=== PATIENT | female | born 1960 | race Caucasian/White ===

== ENCOUNTER 2017-12-01 06:57 | Day surgery (SDC) | payer MEDICAID, SELFPAY ==
[2017-11-29 16:08] LABS: Hematocrit 40.4 % (37-47); Hemoglobin 12.8 g/dl (12.0-15.0); Mean Corp Hgb Conc 31.7 g/gl (32-36); Mean Corpuscular Hgb 27.9 pg (27.0-32.0); Mean Corpuscular Volume 88.2 fL (81-99); Mean Platelet Vol. 10.6 fl (6.2-12.0); Platelet Count 313 K/mm3 (150-450); RBC Distribution Width CV 13.4 % (11.6-14.6); RBC Distribution Width SD 42.4 fl (35.1-43.9); Red Blood Count 4.58 M/mm3 (4.2-5.4); White Blood Count 8.1 K/mm3 (4.4-11.0)
[2017-11-29 16:16] LABS: Scan Indicated on CBC? Y/N NO
[2017-12-01] VITALS (8 sets, daily range): BP systolic 100–139; BP diastolic 58–86; PULSE 88–108; RESP 16; TEMP 35.8–36; O2SAT 92–100; BMI 36.8
--- NOTE | 2017-12-01 08:45 | OV_PTH ---
PATIENT: SHANNAN CABRAL LOC: [facility] U#:[id number] AGE/SX: 57/F ROOM: RE12/01/[address]: Dr. Jen Wiggins MD : 1960 BED: DIS: 12/01/2017 SPEC #: [id number] RECD: 12/01/17 11:36 STATUS: FERNIE LAILA #: [id number] SYED: 12/01/17 08:[address]: Jen Wiggins DEPT: SURGICAL PATHOLOGY RECD BY: Amari Fierro ENTERED: 12/01/17 13:21 SP TYPE: OVARY OTHR DR: Dr. Joan Leigh MD Tissues: Ovary, NOS Procedures: Surgery Specimen Level IV HEADER OPERATION: Laparoscopic BSO PRE-OP DIAGNOSIS: History breast CA TISSUE SUBMITTED: Bilateral tubes and ovaries MICROSCOPIC DIAGNOSIS Right and left fallopian tubes and ovaries, bilateral salpingo-oophorectomies: Right and left ovaries with corpora albicantia and luteal cyst changes. Right and left fallopian tubes ? no pathologic change. AM:margie 12/02/17 MICROSCOPIC DESCRIPTION Slides are reviewed. GROSS DESCRIPTION Received in fixative is one container labeled with the patient's name and designated bilateral fallopian tubes and ovaries. The specimen consists of bilateral fallopian tubes and ovaries. The ovaries and fallopian tubes are not identified as right or left. One of the fallopian tubes measures 4 cm in length and 0.5 cm in diameter. The fimbrial end is present. No tubo-ovarian adhesions are identified. Sections of the fallopian tube reveal unremarkable cut surfaces. The adjacent ovary measures 2 x 1.5 x 1 cm. The other fallopian tube measures 4.5 cm in length and 0.4 cm in diameter. The fimbrial end is identified. No tubo-ovarian adhesions are noted. The adjacent ovary measures 2 x 1.5 x 1.2 cm. Sections reveal unremarkable cut surfaces. Aquatic Laborer sections are submitted as follows: 1 ? one fallopian tube and adjacent ovary, 2 ? rest of the adjacent ovary, 3 ? second fallopian tube and adjacent ovary, 2 ? rest of the ovary. Both ovaries are submitted in entirety. / SJ:margie 12/01/17 TC:5 CPT: 52557 x2
[2017-12-01] MEDS: Bupivacaine Mpf 0.5% 30 ML VIAL (09:05)
--- NOTE | 2017-12-01 09:26 | PCM.DC.TUB ---
Discharge Diet: No Restrictions - Increase fluid intake for the next 48 hours. Discharge Activity: Return to Normal Activity, May Drive - when you are no longer taking pain/narcotic meds., May Shower, May Take a Tub Bath - in 7 days May shower in (days): 1 May resume sexual activity in: 2 weeks Lifting Restrictions: 15 lbs x 1 week Additional Activity Instructions:: Ambulate often the next week after surgery. Your skin incisions have skin glue, they can get wet Call your doctor if your incision/area has: Continuous Slow Oozing, Sudden Increased Bleeding, Increased Pain/ Swelling, Increased Redness, Foul Smelling Discharge Call your doctor if you observe: Fever of 101 or Higher Cleanse incision/area with: Soap & Water Allergies/Adverse Reactions: Allergies lisinopril Adverse Reaction (Verified 11/28/17 08:15) COUGH Medications to take at Discharge RX: BuPROPion [Wellbutrin] 200 mg PO DAILY 12/10/14 RX: Fluoxetine [Prozac] 80 mg PO DAILY 12/10/14 RX: Amitriptyline HCl [Elavil] 200 mg PO DAILY 06/08/17 RX: Ferrous Sulfate [Iron] 325 mg PO DAILY 06/08/17 RX: Omeprazole [Prilosec] 20 mg PO DAILY 06/08/17 RX: Amlodipine Besylate [Norvasc] 5 mg PO DAILY 10/25/17 RX: Losartan Potassium [Cozaar] 100 mg PO DAILY 10/25/17 RX: Meclizine HCl [Antivert] 25 mg PO TID PRN PRN 10/25/17 RX: Hydrochlorothiazide [Hctz] 25 mg PO DAILY 10/27/17 RX: ALPRAZolam [Xanax] 0.5 mg PO TID PRN 11/28/17 Ibuprofen [Motrin] 600 mg PO Q6H PRN #60 tab 12/01/17 Oxycodone HCl/Acetaminophen [Percocet 5/325] 1 - 2 tablet PO Q6H PRN PRN 7 Days #20 tablet 12/01/17 RX: Ondansetron [Zofran] 4 mg IM X1 PRN vial 12/01/17 The following prescriptions were given: Oxycodone HCl/Acetaminophen [Percocet 5/325] 1 - 2 tablet PO Q6H PRN PRN 7 Days #20 tablet PRN Reason: Pain Ibuprofen [Motrin] 600 mg PO Q6H PRN #60 tab PRN Reason: Pain Primary Care Physician: Joan Leigh MD [Primary Care Provider] - Please Follow Up With: Jen Wiggins MD - [phone] When: as scheduled or as needed 2-4 weeks
--- NOTE | 2017-12-01 09:28 | PCM.OPRPT ---
Report of Operation Date of Procedure: 12/01/17 Pre-Operative Diagnosis: estrogen receptor positive breast cancer Post-Operative Diagnosis: same Surgery/Procedure Performed:: Laprascopic BSO claims adjuster supervisor: Isidra Lobo claims adjuster supervisor: Rohan perez Type of Anesthesia:: General Anesthesiologist: John Bishop Special Medications: 0.25% marcaine locally Specimen's removed: bilateral tubes and ovaries Drains: none Estimated Blood Loss (mL): 10 cc Fluids Replaced: 600 cc LR Description of Procedure: The patient was taken to the operating room where she was prepped and draped in the dorsolithotomy position. A weighted speculum was placed in the vagina and the anterior lip of the cervix was grasped with a tenaculum. The Laura uterine manipulator was placed and the remainder of the instruments were removed from the vagina. Attention was turned to the abdomen. All port sites were infiltrated with 0.5% Marcaine before skin incisions were made. A 5 mm intraumbilical incision was made. The anterior abdominal wall was tented up with 2 towel clamps while a 5 mm blade less trocar and sleeve were directly inserted. Intraperitoneal placement was confirmed with the laparoscope. The pneumoperitoneum was created and the underlying abdominal contents were intact. The patient was placed in Trendelenburg. 5mm right and left lower quadrant ports were placed under direct visualization lateral to the inferior epigastric vessels. The bowel was swept away and the above findings were noted. The right infundibulopelvic ligament was clamped, sealed and transected with the LigaSure device. The antimesenteric portions of the tube were clamped, sealed and transected. The utero-ovarian ligaments were clamped sealed and transected with the LigaSure device . The same procedure was performed on the contralateral side. The specimens were placed in an bag and removed through the umbilical incision after it was stretched with a Nelda clamp. The Endo Catch bag was placed through this incision. The pedicles were again examined and found to be hemostatic. The umbilical port fascia was closed with an 0 Vicryl vrnchn-nb-wjyon suture. The lateral ports were removed under direct visualization and no active bleeding was noted. The pneumoperitoneum was released. The skin incisions were closed with Monocryl suture in a subcuticular fashion and skin glue Dr. Corona. The vaginal instruments were removed and the vaginal sweep was completed by me. The procedure was performed by me with assistance other than as dictated above. All sponge and needle counts were correct and the patient was taken to the recovery room in stable condition. Grafts/Implants Used: none - Complications none - Admit VTE Documentation VTE Present on Admission: No VTE Mechan Device Prophylaxis: SCD's VTE Pharm Prophylaxis ordered?: No
--- NOTE | 2017-12-01 09:34 | OP.PCM_ITS ---
Report of Operation Date of Procedure: 12/01/17 Pre-Operative Diagnosis: estrogen receptor positive breast cancer Post-Operative Diagnosis: same Surgery/Procedure Performed:: Laprascopic BSO president ergonomic consulting: Isidra Lobo president ergonomic consulting: Rohan perez Type of Anesthesia:: General Anesthesiologist: John Bsihop Special Medications: 0.25% marcaine locally Specimen's removed: bilateral tubes and ovaries Drains: none Estimated Blood Loss (mL): 10 cc Fluids Replaced: 600 cc LR Description of Procedure: The patient was taken to the operating room where she was prepped and draped in the dorsolithotomy position. A weighted speculum was placed in the vagina and the anterior lip of the cervix was grasped with a tenaculum. The Laura uterine manipulator was placed and the remainder of the instruments were removed from the vagina. Attention was turned to the abdomen. All port sites were infiltrated with 0.5% Marcaine before skin incisions were made. A 5 mm intraumbilical incision was made. The anterior abdominal wall was tented up with 2 towel clamps while a 5 mm blade less trocar and sleeve were directly inserted. Intraperitoneal placement was confirmed with the laparoscope. The pneumoperitoneum was created and the underlying abdominal contents were intact. The patient was placed in Trendelenburg. 5mm right and left lower quadrant ports were placed under direct visualization lateral to the inferior epigastric vessels. The bowel was swept away and the above findings were noted. The right infundibulopelvic ligament was clamped, sealed and transected with the LigaSure device. The antimesenteric portions of the tube were clamped, sealed and transected. The utero-ovarian ligaments were clamped sealed and transected with the LigaSure device . The same procedure was performed on the contralateral side. The specimens were placed in an bag and removed through the umbilical incision after it was stretched with a Nelda clamp. The Endo Catch bag was placed through this incision. The pedicles were again examined and found to be hemostatic. The umbilical port fascia was closed with an 0 Vicryl xywkdx-qh-hnjdp suture. The lateral ports were removed under direct visualization and no active bleeding was noted. The pneumoperitoneum was released. The skin incisions were closed with Monocryl suture in a subcuticular fashion and skin glue Dr. Corona. The vaginal instruments were removed and the vaginal sweep was completed by me. The procedure was performed by me with assistance other than as dictated above. All sponge and needle counts were correct and the patient was taken to the recovery room in stable condition. Grafts/Implants Used: none - Complications none - Admit VTE Documentation VTE Present on Admission: No VTE Mechan Device Prophylaxis: SCD's VTE Pharm Prophylaxis ordered?: No
[2017-12-01] MEDS: oxyCODONE 5 MG Tablet 10 MG PO (12:10)
== END 2017-12-01 13:18 | disposition home or self-care (01) ==
LOC: SDC 06:57 → AC 06:58
PROVIDERS: Family Provider Internal Medicine; PCP Internal Medicine; Visit Provider Obstetrics & Gynecology
PROC: (CPT 58661; principal; 2017-12-01 08:30)
DX: N83.292 Other ovarian cyst, left side (principal); N83.291 Other ovarian cyst, right side; N83.12 Corpus luteum cyst of left ovary; N83.11 Corpus luteum cyst of right ovary; C50.912 Malignant neoplasm of unspecified site of left female breast; Z17.0 Estrogen receptor positive status [ER+]; J44.9 Chronic obstructive pulmonary disease, unspecified; F32.9 Major depressive disorder, single episode, unspecified; K21.9 Gastro-esophageal reflux disease without esophagitis; I10 Essential (primary) hypertension; D50.9 Iron deficiency anemia, unspecified; G47.30 Sleep apnea, unspecified; F41.9 Anxiety disorder, unspecified; Z87.891 Personal history of nicotine dependence; Z79.51 Long term (current) use of inhaled steroids; Z79.891 Long term (current) use of opiate analgesic; Z79.899 Other long term (current) drug therapy
CPT/HCPCS: 00840; 58661; 36415; 85027; 88305; J7120; A4216; J2405

== ENCOUNTER → 2017-12-05 07:13 | Outpatient (CLI) | payer MEDICAID, SELFPAY ==
[2017-12-01 07:30] VITALS: BMI 36.8
[2017-12-01 10:48] VITALS: BP 100/60
--- NOTE | 2017-12-05 | IMM_PTH ---
PATIENT: SHANNAN CABRAL LOC: [facility] U#:[id number] AGE/SX: 64/F ROOM: RE12/05/[address]: Dr. Leidy Walker MD : 1960 BED: DIS: SPEC #: [id number] RECD: 12/06/17 11:10 STATUS: FERNIE RENeftali #: [id number] SYED: 12/05/17 00:[address]: Leidy Walker DEPT: IMMUNOHISTOCHEMISTRY RECD BY: Felicia Adams ENTERED: 12/06/17 11:11 SP TYPE: IMMUNO OTHR DR: Dr. Joan Leigh MD Tissues: Right breast, NOS Procedures: CALPONIN-1 (add) CK8 (add) E-CAD (add) HER2 DAMEON (add) KI-67 (add) P53 (add) FL (add) P40 (add) ER (initial) PHYSICIAN & INSTITUTION [place] [id number] SPECIMEN INFORMATION: Tissue Source: Right breast Clinical Info: Right breast 12 o?clock microcalcifications Specimen Number: [id number] #1 CPT code: 44434, 66290 x5, 18795 x3 METHODOLOGY: Deparaffinized sections of prefer/formalin-fixed tissue or PAP/DQ stained slides are incubated with monoclonal/polyclonal antibodies/oligonucleotide probes. Localization is made via biotin free immunoperoxidase method. Appropriate controls are performed and reacted as expected. Results on target cell population are indicated in the following table: RESULTS: ANTIBODY / CLONE RESULT Block 1 P53 (DO-7) positive, 20% Ki-67 (30-9) positive, low CK8 (04uxdkF20) positive Calponin-1 (UK386R) positive P40 (BC28) positive E-Cad (ECH-6) positive MORPHOMETRIC ANALYSIS ER (clone 6F11) positive, 2% dim FL (clone 16/1E2) negative, 0% Her-2Neu (clone CB11) positive, 3+ The prognostic test for HER2 is performed on formalin-fixed paraffin embedded tissue. A 3+ (positive) staining pattern is defined as intense, homogeneous, complete, circumferential membranous staining in >10% of contiguous tumor cells. A similar weak (2+) staining pattern is interpreted as equivocal. DIDIER follow-up testing is recommended for all equivocal cases. Positivity/negativity for ER/FL is reported if > or < 1% of the tumor cells are immuno- reactive, respectively. The ASCO/CAP criteria is used for scoring. Reference: Journal of Clinical Oncology, 2013; 31:8221-6313 & 2010; 16:3903-4481. Duration of fixation: 11 Hrs; Sample Adequate: Yes. These assays have not been validated on decalcified tissues. Results should be interpreted with caution given the likelihood of false negativity on decalcified specimens. These tests were developed and their performance characteristics determined by [facility]. They may not have been cleared or approved by the U.S. Food and Drug Administration. The FDA has determined that such clearance or approval is not necessary. 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 AM:margie 12/07/17 Case has been reviewed in consultation with Dr. Bowens who concurs with the above diagnosis. IDC:SJ
--- NOTE | 2017-12-05 08:25 | BRBX_PTH ---
PATIENT: SHANNAN CABRAL LOC: [facility] U#:[id number] AGE/SX: 64/F ROOM: RE12/05/[address]: Dr. Leidy Walker MD : 1960 BED: DIS: SPEC #: [id number] RECD: 12/05/17 14:45 STATUS: FERNIE RENeftali #: [id number] SYED: 12/05/17 08:[address]: Leidy Walker DEPT: SURGICAL PATHOLOGY RECD BY: Juarez Fuentes ENTERED: 12/05/17 14:46 SP TYPE: BREAST BX OTHR DR: Dr. Joan Leigh MD Tissues: Right breast, NOS Procedures: Surgery Specimen Level IV HEADER OPERATION: Right breast stereotactic biopsy PRE-OP DIAGNOSIS: Right breast 12 o?clock microcalcifications TISSUE SUBMITTED: Right beast tissue ISCHEMIC TIME: 3 minutes FIXATION TIME: 11 hours MICROSCOPIC DIAGNOSIS Right breast, stereotactic needle core biopsy: Focal atypical hyperplasia approaching ductal carcinoma insitu. Microcalcifications Fibrocystic change, intraductal hyperplasia without atypia, adenosis and focal secretory change. AM:margie 12/06/17 COMMENT ER/UT/Lwb5cxh studies are being performed on sections of tumor and the results from this study will be reported separately ([id number]). Case has been reviewed in consultation with Dr. Bowens who concurs with the above diagnosis. IDC:JAGDISH MICROSCOPIC DESCRIPTION Slides are reviewed. GROSS DESCRIPTION Received in fixative is one container labeled with the patient's name and designated right breast. The specimen consists of multiple elongated fragments of reyna-yellow fibroadipose tissue that in aggregate measure 7.5 x 3 x 0.3 cm. The entire specimen is submitted in three cassettes. / JAGDISH:margie 12/05/17 TC:0 CPT: 25938
--- NOTE | 2017-12-05 08:58 | PCM.OPRPT ---
Report of Operation Date of Procedure: 12/05/17 Pre-Operative Diagnosis: abnormal calcifications on right breast mammograms Post-Operative Diagnosis: same Surgery/Procedure Performed:: right stereotactic breast biopsy Description of Surgical Findings:: central calcifications, right breast 12:00 Specimen's removed: right breast tissue Estimated Blood Loss (mL): < 2 Description of Procedure: After informed consent was given, the patient was brought into the breast biopsy suite and then placed in the prone position on the stereotactic biopsy table. Appropriate time out protocol was followed. The patients right breast was then placed in the hole at the head of the table. A packaging line attendant compression mammogram was then obtained in the CC view. The suspicious radiological lesion was then identified. Stereo pictures of the lesion were then taken for XYZ coordinates. The Mammotome biopsy stylus was then positioned where it would be entering into the patients breast. The skin at this site was then cleansed with a surgical skin preparation. The skin and subcutaneous tissues at this site were then infiltrated with 1% xylocaine. A small skin incision was made with an 11 blade scalpel. The biopsy stylus was then positioned into the patients breast at the proper coordinates of depth. Using the Mammotome vacuum-assist device, several core samples of breast tissue were obtained. A specimen mammogram was the obtained and revealed that the suspicious lesion was within the specimen. A hemostatic marker clip was then placed into the biopsy cavity and a packaging line attendant film revealed that it was properly deployed. The patient was then placed in the supine position and pressure was applied to the breast until no active bleeding was noted. Steristrips were applied to reapproximate the skin. A unilateral mammogram in the CC and MLO view were then taken which revealed that the marker clip was in the same area as the previous suspicious lesion. The patient tolerated the procedure well and was discharged from the breast biopsy suite in good condition. Grafts/Implants Used: Mammotome clip Lot [id number] - Complications none noted - Admit VTE Documentation VTE Present on Admission: No - low risk procedure for PE/DVT
== END ==
PROVIDERS: Family Provider Internal Medicine; PCP Internal Medicine; Visit Provider Surgery
DX: D05.11 Intraductal carcinoma in situ of right breast (principal); N60.11 Diffuse cystic mastopathy of right breast; N60.91 Unspecified benign mammary dysplasia of right breast; N60.21 Fibroadenosis of right breast; C50.912 Malignant neoplasm of unspecified site of left female breast; J44.9 Chronic obstructive pulmonary disease, unspecified; I10 Essential (primary) hypertension; Z90.12 Acquired absence of left breast and nipple; Z87.891 Personal history of nicotine dependence; Z79.51 Long term (current) use of inhaled steroids; Z79.899 Other long term (current) drug therapy
CPT/HCPCS: 19081; 88305; 88341; 88342; J7050; A4648

== ENCOUNTER 2017-12-26 11:23 | Observation (INO) | payer MEDICAID, SELFPAY ==
[2017-12-01 07:30] VITALS: BMI 36.8
[2017-12-01 10:48] VITALS: BP 100/60
[2017-12-26] VITALS (10 sets, daily range): BP systolic 118–148; BP diastolic 64–76; PULSE 89–117; RESP 16–20; TEMP 36.3–37.6; O2SAT 92–98; BMI 37.4
--- NOTE | 2017-12-26 | IMM_PTH ---
PATIENT: SHANNAN CABRAL LOC: [facility] U#:[id number] AGE/SX: 57/F ROOM: MS316 RE12/26/[address]: Dr. Leidy Walker MD : 1960 BED: 1 DIS: 12/27/2017 SPEC #: [id number] RECD: 12/28/17 16:37 STATUS: FERNIE REQ #: [id number] SYED: 12/26/17 00:[address]: Leidy Walker DEPT: IMMUNOHISTOCHEMISTRY RECD BY: Felicia Adams ENTERED: 12/28/17 16:39 SP TYPE: IMMUNO OTHR DR: Dr. Joan Leigh MD Tissues: A - Axillary lymph node, NOS B - Right breast, NOS Procedures: CALPONIN-1 (add) CK7 (add) CK8 (add) E-CAD (add) Pankeratin (initial) Pankeratin (add) P40 (add) PHYSICIAN & INSTITUTION [place] [address] SPECIMEN INFORMATION: Tissue Source: A ? Right axillary sentinel lymph node, B ? Right breast with lymph node Clinical Info: Atypical ductal hyperplasia of right breast Specimen Number: [id number] A & B CPT code: 22767 x2, 03079 x10 METHODOLOGY: Deparaffinized sections of prefer/formalin-fixed tissue or PAP/DQ stained slides are incubated with monoclonal/polyclonal antibodies/oligonucleotide probes. Localization is made via biotin free immunoperoxidase method. Appropriate controls are performed and reacted as expected. Results on target cell population are indicated in the following table: RESULTS: ANTIBODY / CLONE RESULT Block A AE1-3 (AE1/AE3/PCK26) negative CK7 (OV-TL12/30) negative Block B1 AE1-3 (AE1/AE3/PCK26) negative CK7 (OV-TL12/30) negative Block B2 AE1-3 (AE1/AE3/PCK26) negative CK7 (OV-TL12/30) negative Block B3 AE1-3 (AE1/AE3/PCK26) negative CK7 (OV-TL12/30) negative Block B10 E-Cad (ECH-6) positive CK8 (49xhanY93) positive Block B16 P40 (BC28) positive Calponin-1 (IN669J) positive These tests were developed and their performance characteristics determined by [facility]. They may not have been cleared or approved by the U.S. Food and Drug Administration. The FDA has determined that such clearance or approval is not necessary. INTERPRETATION: A. Right axillary sentinel lymph node, biopsy: One lymph node, negative for metastatic carcinoma. B. Right breast with lymph node: Three out of three lymph nodes, negative for metastatic carcinoma. Intraductal hyperplasia with focal atypia. Extensive adenosis. SJ:margie 12/29/17
--- NOTE | 2017-12-26 | AXNB_PTH ---
PATIENT: SHANNAN CABRAL LOC: [facility] U#:[id number] AGE/SX: 57/F ROOM: AZ316 RE12/26/[address]: Dr. Leidy Walker MD : 1960 BED: 1 DIS: 12/27/2017 SPEC #: [id number] RECD: 12/26/17 11:05 STATUS: FERNIE REQ #: [id number] SYED: 12/26/17 00:[address]: Leidy Walker DEPT: SURGICAL PATHOLOGY RECD BY: Felicia Adams ENTERED: 12/26/17 12:34 SP TYPE: AX NODE BX OTHR DR: Dr. Joan Leigh MD Tissues: A - Axillary lymph node, NOS B - Right breast, NOS Procedures: Frozen Section (charge) Surgery Specimen Level V Surgery Specimen Level Frozen (no charge) HEADER OPERATION: Mastectomy, sentinel node biopsy with frozen section PRE-OP DIAGNOSIS: Atypical ductal hyperplasia of right breast TISSUE SUBMITTED: A ? Right axillary sentinel lymph node sent for FS at 1101, B ? Right breast with lymph node FIXATION TIME: 31 hours FROZEN SECTION DIAGNOSIS A. Right axillary sentinel lymph node, biopsy: One lymph node, negative for metastatic carcinoma. JAGDISH:margie 12/26/17 MICROSCOPIC DIAGNOSIS A. Right axillary sentinel lymph node, biopsy: One lymph node, negative for metastatic carcinoma. See comment. B. Right breast with lymph node tissue, radical mastectomy: Intraductal hyperplasia with focal atypia. Extensive adenosis with focal atypia. Fibrocystic changes. Frequent microcalcifications. Three out of three lymph nodes, negative for metastatic carcinoma. Changes consistent with previous biopsy site. Negative for malignancy. JAGDISH:margie 12/28/17 COMMENT A. The lymph node is negative for metastatic carcinoma on multiple H & E levels and immunohistochemical stains for cytokeratins ([id number]). B. Immunohistochemistry ([id number]) supports the above diagnosis.. Please make reference to previous specimen ([id number]) right breast, stereotactic needle core biopsy with diagnosis of focal atypical hyperplasia approaching ductal carcinoma in situ and ([id number]) left breast, mastectomy with diagnosis of invasive ductal carcinoma. MICROSCOPIC DESCRIPTION Slides are reviewed. GROSS DESCRIPTION A - Received fresh for frozen section diagnosis labeled with the patient's name is a specimen designated right axillary sentinel lymph node. The specimen consists of a piece of adipose tissue containing a nodule measuring 1 x 0.3 x 0.2 cm. The entire specimen is submitted for frozen section diagnosis in one cassette. / SJ:margie 12/26/17 B - Received in fixative is one container labeled with the patient's name and designated right breast with lymph node tissue, suture gray axilla. The specimen consists of a mastectomy specimen including breast tissue and axillary tail. The axillary tail is marked by a suture. The breast tissue measures 18 x 22 x 5 cm and the overlying skin ellipse measures 16 x 4.5 cm. The axillary tail measures 7 x 5 x 3 cm. A detached piece of fatty tissue with a nodule is identified. The nodule is consistent with lymph node and shows blue dye discoloration and the lymph node measures 1 cm in greatest dimension. The nipple measures 1 cm in greatest dimension. The resection margins are inked as follows: anterior surface ? yellow, close to the skin ellipse, superior margin ? blue, inferior margin ? green, medial margin ? red, lateral margin including axillary tail ? orange, posterior margin ? black. Serial sections reveal a hemorrhagic cavity filled with blood clot measuring 2.5 x 2.5 x 2 cm. The hemorrhagic cavity is 0.7 cm away from the closest anterior margin superior to the skin ellipse. No obvious mass lesion is identified. Sections of the rest of the specimen reveal reyna-yellow adipose cut surfaces mixed with reyna-white fibrous areas. Three additional lymph nodes are identified in the axillary tail measuring 0.5 and 1 cm in greatest dimension. The axillary tail tissue is fixed in lymph node-revealing solution. More dictation will be follow after overnight fixation. / SJ:margie 12/26/17 Further sectioning of axillary tail reveal fibrous area, possible lymph nodes.. Medical Assisting Program Director sections are submitted in 20 cassettes as follows: 1- 1 bisected lymph node, with blue dye discoloration, present as detached piece of tissue, 2 & 3 ? each containing one bisected lymph node, 4 ? possible one bisected lymph node, 5 - possible one bisected lymph node, 6 ? nipple, entirely submitted, 7 ? perpendicular superior, inferior and posterior margins, 8 ? perpendicular medial and lateral margins and skin, 9-15 ? biopsy cavity with surrounding tissue, senior patient account representative section adjacent to the biopsy cavity, 1720 ? senior patient account representative sections away from the biopsy cavity. / JAGDISH:margie 12/27/17 TC:5 CPT: 07548, 72535, 31705
[2017-12-26] MEDS: Cefazolin 2 GM in 0.9% Normal Saline 100 ML IV (09:49)
[2017-12-26] MEDS: Methylene Blue 1% 100 MG/10 ML VIAL (10:09)
--- NOTE | 2017-12-26 11:19 | PCM.IMDPSTOP ---
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
--- NOTE | 2017-12-26 11:22 | OP.PN_ITS ---
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
--- NOTE | 2017-12-26 11:22 | PCM.OPRPT ---
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 and history of left breast cancer Post-Operative Diagnosis: same Surgery/Procedure Performed:: right simple mastectomy, right axillary sentinel lymph node biopsy Description of Surgical Findings:: one sentinel lymph node found to be negative vba developer: Khalida Rai Type of Anesthesia:: General Anesthesiologist: Gudelia Matute Specimen's removed: right breast tissue, right axillary sentinel lymph node Drains: 2 10mm drains - one in axlla, one at mastectomy bed Estimated Blood Loss (mL): 20 ml Fluids Replaced: 500 ml RL Description of Procedure: After informed consent was given the patient was brought to the OR and placed in the supine position on the operating room table. Appropriate time out protocol was followed. She was then placed under general anesthesia. 5 cc of diluted 50:50 methylene blue dye was then injected into the periareolar area and around the biopsy cavity with a 25 g needle. Gentle massage was then done for a few minutes. The patient's right chest and neck area was then prepped with a sterile surgical skin preparation and appropriate sterile surgical drapes were placed. A skin incision was made to include the periareolar tissues. This was made to match the contralateral mastectomy site as close as possible. Also since the initial biopsy site was far superior to the mastectomy incision site, an additional excision of this skin eschar was done. The skin incision was made with a 10 blade scalpel and carried through to the subcutaneous tissues using electrocautery. Any hemorrhage was controlled with electrocautery. The medial and superior skin flap was created by the subcutaneous fat from the breast tissue using electrocautery. Any bleeding vessels were controlled with electrocautery. Larger vessels were ligated with vicryl suture. Dissection then continued to the level of the left lateral sternal border. The superior level of dissection was carried down to the clavipectoral fascia. This was carefully done to avoid injury to the right chest portacath that was in place. The inferior skin flap was developed in the same fashion and the breast tissue was to its inferior border from the subcutaneous fat. The entire breast tissue and the pectoralis fascia were then from the pectoralis muscles starting medially and continuing laterally. The dissection included the interpectoral ruby tissue. Once dissection was achieved to the lateral aspect of the breast, then the inferior portion of the lateral tissue was transected leaving the breast tissue connected only by the superior lateral tissue (tail of Romero) of the breast. Blunt dissection was then conducted into the axillary fossa to palpate out any axillary lymph nodes. Blue lymphatic channels were also followed to its lymphatic drainage area. One axillary lymph node was identified which was obviously blue in coloration. It was dissected from the surrounding tissues using sharp dissection and any vasculature was clamped with hemoclips. The lymph node was forwarded to pathology for which a frozen section revealed no evidence of metastatic disease. Hemostasis of the area of dissection was then achieved with electrocoagulation. The mastectomy bed and axillary cavity had Chay applied. A 10 mm drain was placed in the axilla and another was placed along the mastectomy bed and these drains were brought out through separate skin incisions and sutured to the skin using nylon suture. The superior and inferior skin flaps were then approximated together using interrupted vicryl suture along the dermis of the skin edges. The skin incision was then reapproximated with 4-0 monocryl in a running subcuticular fashion. Cavilon and steristrips were then placed to reinforce the skin closure and proper sterile dressings were applied. - Complications none noted - Admit VTE Documentation VTE Present on Admission: Yes VTE Mechan Device Prophylaxis: SCD's
[2017-12-26] MEDS: 0.9% NaCl Peripheral Flush Adult/Peds IV (15:08)
[2017-12-26] MEDS: Cefazolin 1 GM/50 ML BAG IV (18:21)
[2017-12-26] MEDS: HYDROcodone Bitartrate/Apap 5/325 Tablet PO (20:14)
[2017-12-26] MEDS: Lactated Ringers 1,000 ML 75 ML IV (20:16)
[2017-12-27] MEDS: Cefazolin 1 GM/50 ML BAG IV ×2 (02:01→10:37)
[2017-12-27] MEDS: 0.9% NaCl Peripheral Flush Adult/Peds IV ×3 (02:03→12:07)
[2017-12-27 02:04] VITALS: BP 130/69; PULSE 101; RESP 18; TEMP 37.3; O2SAT 94
--- NOTE | 2017-12-27 07:21 | PCM.DC.BS ---
Discharge Diet: No Restrictions Discharge Activity: Return to Normal Activity, May not drive while taking narcotic pain medications. Lifting Restrictions: no lifting with right arm greater than 5 pounds until further notice Call your doctor if your incision/area has: Continuous Slow Oozing, Foul Smelling Discharge Additional Dressing/Incision Instructions:: Leave dressing in place. Sponge bathe only. Empty GAYLE drains and reconstitute suction as per needed Allergies/Adverse Reactions: Allergies lisinopril Adverse Reaction (Verified 12/19/17 11:17) COUGH Medications to take at Discharge BuPROPion [Wellbutrin] 200 mg PO DAILY 12/10/14 Fluoxetine [Prozac] 80 mg PO DAILY 12/10/14 Amitriptyline HCl [Elavil] 200 mg PO QHS 06/08/17 Ferrous Sulfate [Iron] 325 mg PO DAILY 06/08/17 Omeprazole [Prilosec] 20 mg PO DAILY 06/08/17 Amlodipine Besylate [Norvasc] 5 mg PO DAILY 10/25/17 Losartan Potassium [Cozaar] 100 mg PO DAILY 10/25/17 Meclizine HCl [Antivert] 25 mg PO TID PRN PRN 10/25/17 Hydrochlorothiazide [Hctz] 25 mg PO DAILY 10/27/17 ALPRAZolam [Xanax] 0.5 mg PO TID PRN 11/28/17 Ibuprofen [Motrin] 800 mg PO Q6H PRN 12/19/17 Cephalexin [Keflex] 500 mg PO BID 10 Days #20 cap 12/27/17 Oxycodone [Oxyir] 5 mg PO Q6H PRN PRN 7 Days #14 tab 12/27/17 The following prescriptions were given: Oxycodone [Oxyir] 5 mg PO Q6H PRN PRN 7 Days #14 tab PRN Reason: Mod-Severe Pain (4-08/09) Cephalexin [Keflex] 500 mg PO BID 10 Days #20 cap Primary Care Physician: Joan Leigh MD [Primary Care Provider] - Please Follow Up With: Leidy Walker MD - call When: to be seen or Tuesday, please call for date and time, thank you
[2017-12-27 07:42] VITALS: O2SAT 96
[2017-12-27 08:04] VITALS: BP 150/80; PULSE 84; RESP 18; TEMP 36.9; O2SAT 99
[2017-12-27] MEDS: HYDROcodone Bitartrate/Apap 5/325 Tablet PO (08:27)
[2017-12-27 12:10] VITALS: BP 148/81; PULSE 84; RESP 18; TEMP 36.7; O2SAT 97
== END 2017-12-27 12:09 | disposition home or self-care (01) ==
LOC: SDC 12:05
PROVIDERS: Admitting Provider Surgery; Family Provider Internal Medicine; PCP Internal Medicine; Visit Provider Surgery
PROC: (CPT 19307; principal; 2017-12-26 09:45)
DX: N60.91 Unspecified benign mammary dysplasia of right breast (principal); Z85.3 Personal history of malignant neoplasm of breast; I10 Essential (primary) hypertension; J44.9 Chronic obstructive pulmonary disease, unspecified; F11.20 Opioid dependence, uncomplicated; Z79.899 Other long term (current) drug therapy; Z87.891 Personal history of nicotine dependence; E66.01 Morbid (severe) obesity due to excess calories; Z68.39 Body mass index [BMI] 39.0-39.9, adult; Z71.3 Dietary counseling and surveillance; F41.9 Anxiety disorder, unspecified; F32.9 Major depressive disorder, single episode, unspecified; N60.21 Fibroadenosis of right breast
CPT/HCPCS: 19303; 38525; 38900; 88305; 88307; 88309; 88331; 88341; 88342; 96361; 96365; 96366; 96375; 96376; 97802; 99218; J7120; A4216; G0378; G0379; J2405; J3490

== ENCOUNTER 2018-01-05 14:19 | Emergency (ER) | payer MEDICAID, SELFPAY ==
[2018-01-05 14:20] VITALS: BP 131/94; PULSE 115; RESP 16; TEMP 35.8; O2SAT 93; BMI 38.5
--- NOTE | 2018-01-05 14:58 | CT_ITS ---
STUDY: CT ABDOMEN AND PELVIS WITHOUT CONTRAST REASON FOR EXAM: Female, 57 years old. Constipation. Status post bilateral mastectomy. RADIATION DOSAGE (If Supplied By Facility): CTDIvol = ( 19.84 ) mGy, DLP = ( 996.18 ) mGycm TECHNIQUE: Transaxial images were obtained from the dome of the diaphragm to the symphysis pubis without oral contrast, and without intravenous contrast. Sagittal and coronal images were reconstructed. Individualized dose optimization techniques were used for this CT. COMPARISON: None. FINDINGS: Mild linear atelectatic versus chronic changes. Small pericardial effusion. Mild fatty liver. Normal gallbladder and extrahepatic biliary system. There are multiple benign calcified granulomata of the spleen. Normal pancreas. Normal bilateral adrenal glands. Normal right kidney. Normal left kidney. Food filled stomach. Normal small bowel. Stool filled right colon, transverse colon and left colon. Minimal diverticulosis without acute diverticulitis. Negative for a mechanical obstruction of the colon. The appendix is visualized and appears normal. There is diffuse atherosclerotic calcification of the abdominal aorta, without a demonstrated aneurysm. Normal inferior vena cava. Normal retroperitoneum. Normal urinary bladder. Negative for pelvic mass or free fluid of the pelvis. Normal abdominal wall. There are diffuse degenerative changes of the visualized lumbar spine. CT/Abdomen/Pelvis without Cont IMPRESSION: Negative for evidence of bowel obstruction, perforation or inflammatory bowel changes. Minimal diverticulosis without evidence of acute diverticulitis. A normal appendix is identified. Stool-filled proximal and left colon. Negative for mechanical obstruction. Calcified granuloma of the spleen. Mild fatty liver. Atherosclerosis. Mild degenerative changes of the lumbar spine. Electronically Signed: Meg Mclean MD at 16:03 EST , Service support ,
--- NOTE | 2018-01-05 15:03 | ED.VISSUMM ---
- ER Visit Summary Date of Service: 01/05/18 Chief Complaint: [] Constipation status post right mastectomy History of Present Illness: The patient is a 57 F [] cancer prior left mastectomy prior recent 2 months ago hysterectomy complete, there apparently was a need for right mastectomy related to concern for breast cancer, related to all of the above this was done the other day. Without difficulty, no complication she reports she has been on [place] and percocet and she is developed constipation she is able to eat she is passing some gas per rectum but no stool for the last few days despite using enemas etc. She has no other complaints she has no history of bowel obstruction or other GI elements her only abdominal surgery was her hysterectomy Physical Examination: [] She has an obviously distended abdomen she is in no distress her vital signs are normal head neck unremarkable the right mastectomy incisions intact without drainage or bleeding or signs of infection, the drain is draining serosanguineous fluid there is nontender the abdomen is distended but nontender, back upper lower extremities unremarkable rectal exam shows empty vault with no stool nontender Test Results: [] Emergency Department Course and Treatment: [] All of the above IV fluids screening labs the patient's CT shows nothing acute labs are generally unremarkable she is noted to have considerable fecal load in the colon, she was treated with soapsuds enema she feels better she wants to go home she had a large bowel movement she understands the need to stop using the narcotic medications, high-fiber food prune-juice MiraLAX and return for change in symptoms she is feeling much better and wants to go home Treatment Plan: [] Disposition: [] Stable home Impression: [] Constipation, status post right mastectomy This note was generated with [employer] dictation software. It may contain incorrect words, spelling, and punctuation that were not noted in review of the chart prior to signing ED Disposition - Plan for ED Patient: Chief Complaint: Constipation Referrals: Joan Leigh MD [Primary Care Provider] -
[2018-01-05] MEDS: 0.9% Normal Saline 1,000 ML 1000 ML IV (15:21)
[2018-01-05 15:32] LABS: Absolute Lymphocyte Count 1.66 X10^3/ul (0.83-4.51); Absolute Neutrophil Count 8.5 X10^3/uL (2.0-7.7); Basophil# 0.01 X10^3/uL; Basophil% 0.1 % (0-1); Eosinophil# 0.09 X10^3/uL; Eosinophils% 0.8 % (0-5); Hematocrit 32.7 % (37-47); Hemoglobin 10.1 g/dl (12.0-15.0); Lymphocyte # 1.66 X10^3/ul (4.0); Lymphocyte % 15.3 % (19-41); Mean Corp Hgb Conc 30.9 g/gl (32-36); Mean Corpuscular Hgb 26.6 pg (27.0-32.0); Mean Corpuscular Volume 86.3 fL (81-99); Mean Platelet Vol. 9.7 fl (6.2-12.0); Monocyte# 0.58 X10^3/uL; Monocyte% 5.4 % (0-10); Neutrophil # 8.46 X10^3/uL (2.7-7.7); Neutrophil % 78.1 % (47-70); Platelet Count 281 K/mm3 (150-450); RBC Distribution Width CV 14.1 % (11.6-14.6); Red Blood Count 3.79 M/mm3 (4.2-5.4); White Blood Count 10.8 K/mm3 (4.4-11.0)
[2018-01-05 15:33] LABS: POSITIVE COUNT NO; POSITIVE DIFFERENTIAL NO; POSITIVE MORPHOLOGY NO
[2018-01-05 15:40] LABS: AST(SGOT) 20 U/L (15-37); Alanine Aminotransfer ALT/SGPT 27 U/L (13-56); Albumin, Serum 3.3 g/dL (3.2-5.0); Alkaline Phosphatase 94 U/L (45-117); Anion Gap 9 (5-15); BUN 36 mg/dL (7-18); BUN/Creat Ratio 22.9 RATIO (10-20); Bilirubin, Direct 0.07 mg/dL (0.00-0.30); Calcium,Total 8.5 mg/dL (8.5-10.1); Chloride 98 mmol/L (98-107); Creatinine, Serum 1.57 mg/dL (0.55-1.02); EST Glomerular Filtration Rate 36 mL/min (>60); Est Glom Filt Rate - Afr Amer 44 mL/min (>60); Estimated Creatinine Clearance 31.27 ml/min; Globulin 3.4 g/dL (2.2-4.2); Glucose 99 mg/dL (74-106); Lipase 117 U/L (73-393); Potassium 3.9 mmol/L (3.5-5.1); Protein, Total 6.7 g/dL (6.4-8.2); Sodium Level 133 mmol/L (136-145)
[2018-01-05 16:41] VITALS: BP 125/59; PULSE 103; RESP 16; O2SAT 95
--- NOTE | 2018-01-05 17:42 | ED.DEP ---
ED Disposition - Plan for ED Patient: Chief Complaint: Constipation Instructions: ED Constipation Referrals: Joan Leigh MD [Primary Care Provider] -
[2018-01-05 18:18] VITALS: BP 128/64; PULSE 78; RESP 18
== END 2018-01-05 20:05 | disposition home or self-care (01) ==
PROVIDERS: Emergency Provider Emergency Medicine; Family Provider Internal Medicine; PCP Internal Medicine
DX: K59.00 Constipation, unspecified (principal); Z90.11 Acquired absence of right breast and nipple; Z79.891 Long term (current) use of opiate analgesic; Z79.899 Other long term (current) drug therapy
CPT/HCPCS: 36591; 74176; 80048; 80076; 83690; 85025; 96360; 96361; 99284; J7030; A4216

== ENCOUNTER 2018-01-31 14:52 | Emergency (ER) | payer MEDICAID, SELFPAY ==
[2018-01-31] VITALS (13 sets, daily range): BP systolic 134–162; BP diastolic 65–108; PULSE 78–105; RESP 16–23; TEMP 36.4–37.2; O2SAT 93–97; BMI 38.0
--- NOTE | 2018-01-31 15:11 | CT_ITS ---
STUDY: CT BRAIN WITHOUT CONTRAST REASON FOR EXAM: Female, 57 years old. Headache and vertigo x2 months RADIATION DOSAGE (If Supplied By Facility): CTDIvol = ( 44.99 ) mGy, DLP = ( 765.18 ) mGycm TECHNIQUE: Transaxial CT imaging of the brain was performed without administration of intravenous contrast material. Individualized dose optimization techniques were used for this CT. COMPARISON: None. FINDINGS: Normal soft tissue structures. Normal calvarium. Normal size ventricles and extra-axial spaces for the patient's age. Normal white matter tracts of the cerebral hemispheres. Normal basal ganglia and thalami. Normal brainstem. Normal cerebellum. There is no intracranial hemorrhage. There are no findings of an acute ischemic infarction. Normal visualized paranasal sinuses. Trace fluid in the right mastoid air cells. CT/Brain/Head without Contrast IMPRESSION: Normal unenhanced CT scan of the brain. Trace fluid in the right mastoid air cells. Electronically Signed: Ty Ferrell DO at 16:53 EDT Tel , Service support ,
--- NOTE | 2018-01-31 15:28 | ED.DCSUM_ITS ---
- ER Visit Summary Date of Service: 01/31/18 Chief Complaint: Sent from oncologist's office for elevated blood pressure, 197/ 91 History of Present Illness: The patient is a 57 F who was recently diagnosed with breast cancer and underwent bilateral mastectomy. Her blood pressure at the doctor's office was 197/91. She does report intermittent headaches. She has reported intermittent vertigo for the past 2 months. There is a positional component as well as an orthostatic component. She reports sometimes when she walks she feels as if she is drunk. She reports numbness left upper extremity for 1 hour yesterday. She states she has not had any imaging of her head since she was diagnosed with breast cancer. She did report transient left-sided chest /flank pain. She also reports ankle swelling. She was unaware that her ankles were swollen so she was told by her oncologist. She states she does not look at her ankles or feet in the morning when she puts on her socks. She denies any fever, chills night sweats. She denies any double vision, blurred vision or loss of vision. She has trouble speech or swallowing. Denies ringing in her ears. She denies decreased hearing. She denies any neck pain. She did report paresthesia left upper extremity yesterday. She denies any motor weakness. She denies loss of sensation. She denies orthopnea or PND. She has no known history of renal disease. She denies any urologic symptoms. She does relate of dyspnea on exertion. She reports being a smoker of 2+ packs per day. She quit 2-3 years ago. She states she has history of COPD. Physical Examination: Blood pressure is 161/108 with a heart rate of 102. She is afebrile and she is not hypoxic. Head is atraumatic normocephalic. Pupils are equal round reactive. Extraocular muscles are intact. TMs are pearly white with landmarks noted. Nares patent with no drainage. Posterior pharynx without erythema or exudate. Uvula is midline. There is no dysphonia or dysphasia. Trachea is midline. There is no stridor with auscultation of the neck. Heart is regular without murmur, gallop or rub. S1 and S2 are normal. Lungs are clear to auscultation with good movement of air bilaterally. Abdomen is prominent with normal bowel sounds. There is no hepatosplenomegaly. There is no CVA tenderness noted. There is no rash over the area of discomfort. Lower extremity exam is remarkable for 2+ pitting edema of the feet and right and left leg. There is also mild edema in the sacral area. Neuro exam is nonfocal. Test Results: CT of the head reveals no acute process interpreted by radiologist reviewed by me. CBC is remarkable for white count of 3.4 thousand with an H&H of 5.6 and 18.3 and platelet count 120,000. Electro panel essentially unremarkable. Potassium 3.2. UA is negative. Total protein is 3.0. Chest x-ray reveals no acute process interpreted by me. Emergency Department Course and Treatment: With history of stage III breast cancer and intermittent neurologic symptoms and headache will obtain a CT of the head since she has not had any imaging of her head. Because she complains of dyspnea and history of COPD chest x-ray was obtained. We will obtain appropriate blood work including urine and assess her proteinuria and albumin. This bilateral edema may represent metastasis from her breast cancer or dependent edema since she states she is not as active. Treatment Plan: Since her workup is unremarkable other than the hemoglobin 5.6 it is my professional opinion that the dyspnea is secondary to symptomatic anemia. Case was discussed with Dr. Clayton Mason on-call for Dr. Wilfredo Rachel he was informed of patient's presentation workup and results. Disposition: Discharged home in stable and improved condition Impression: 1. Dyspnea secondary to symptomatic anemia 2. Stage III breast cancer 4. Paresthesia left upper extremity unknown etiology 4. Bilateral lower extremity lymphedema 5. History of hypertension This note was generated with [employer] dictation software. It may contain incorrect words, spelling, and punctuation that were not noted in review of the chart prior to signing ED Disposition - Plan for ED Patient: Disposition: Home or Assisted Living Chief Complaint: Hypertension Instructions: ED Anemia Type Not Specified, ED Paraesthesias, ED Lymphedema Referrals: Joan Leigh MD [Primary Care Provider] - Marissa Rachel MD [STAFF PHYSICIAN] - Keep [facility]ola appointment
[2018-01-31 15:50] LABS: Absolute Lymphocyte Count 0.82 X10^3/ul (0.83-4.51); Absolute Neutrophil Count 2.2 X10^3/uL (2.0-7.7); Basophil# 0.01 X10^3/uL; Basophil% 0.3 % (0-1); Eosinophil# 0.04 X10^3/uL; Eosinophils% 1.2 % (0-5); Hematocrit 18.3 % (37-47); Lymphocyte # 0.82 X10^3/ul (4.0); Lymphocyte % 24.3 % (19-41); Mean Corp Hgb Conc 30.6 g/gl (32-36); Mean Corpuscular Hgb 27.7 pg (27.0-32.0); Mean Corpuscular Volume 90.6 fL (81-99); Mean Platelet Vol. 9.7 fl (6.2-12.0); Monocyte# 0.31 X10^3/uL; Monocyte% 9.2 % (0-10); Neutrophil # 2.16 X10^3/uL (2.7-7.7); Neutrophil % 64.1 % (47-70); Platelet Count 128 K/mm3 (150-450); RBC Distribution Width CV 14.6 % (11.6-14.6); RBC Distribution Width SD 45.9 fl (35.1-43.9); Red Blood Count 2.02 M/mm3 (4.2-5.4); White Blood Count 3.4 K/mm3 (4.4-11.0)
[2018-01-31 16:00] LABS: POSITIVE DIFFERENTIAL NO
[2018-01-31 16:01] LABS: Differential Indicated SCAN CRITERIA MET; Hemoglobin 5.6 g/dl (12.0-15.0); POSITIVE COUNT YES; POSITIVE MORPHOLOGY NO
[2018-01-31 16:10] LABS: BUN 21 mg/dL (7-18); Creatinine, Serum 0.87 mg/dL (0.55-1.02); Estimated Creatinine Clearance 56.43 ml/min; Glucose 106 mg/dL (74-106)
[2018-01-31 16:11] LABS: AST(SGOT) 22 U/L (15-37); Alanine Aminotransfer ALT/SGPT 25 U/L (13-56); Alkaline Phosphatase 89 U/L (45-117); Anion Gap 8 (5-15); BUN/Creat Ratio 24.1 RATIO (10-20); Calcium,Total 7.9 mg/dL (8.5-10.1); Chloride 104 mmol/L (98-107); EST Glomerular Filtration Rate 71 mL/min (>60); Est Glom Filt Rate - Afr Amer 86 mL/min (>60); Potassium 3.2 mmol/L (3.5-5.1); Sodium Level 139 mmol/L (136-145)
[2018-01-31 16:27] LABS: Bacteria 0 SEEN /hpf (None Seen); Mucous, Urine 0 SEEN /hpf (<or=2+); Red Blood Cells-Urine 0 SEEN /hpf (0-5); Squamous Epithelial Cells - UA 0 SEEN /hpf (5-10); White Blood Cells 0 SEEN /hpf (0-5)
[2018-01-31 16:28] LABS: Color, Urine Straw (Yellow); Glucose, Dipstick Normal (Normal); Ketone-Dipstick Negative (Negative); Leukocyte Esterase-Dipstick Negative /ul (Negative); Nitrite-Dipstick Negative (Negative); Occult Blood-Urine Negative /ul (Negative); Protein-Dipstick Negative (Negative); Urine Bilirubin Dipstick Negative (Negative); Urine Clarity Clear (Clear); Urine Urobilinogen Normal (Normal)
[2018-01-31 16:30] LABS: Anisocytosis 1+; Hypochromasia 1+; Platelet Estimate SLT DEC (ADEQ)
--- NOTE | 2018-01-31 16:31 | ED.RN ---
PORT ACCESSED BY ANGELA BARAKAT.
[2018-01-31] MEDS: LORazepam 0.5 MG Tablet PO (17:07)
--- NOTE | 2018-01-31 17:20 | RAD_ITS ---
STUDY: X-RAY CHEST REASON FOR EXAM: Female, 57 years old. Decreased breath sounds on the left side TECHNIQUE: PA and lateral views of the chest. COMPARISON: None. FINDINGS: Right chest wall Mediport with tip in the mid SVC. Mildly elevated right hemidiaphragm. The lungs are clear and expanded. There is no demonstrated pleural abnormality. There is mild cardiac enlargement. Normal mediastinum and hailey. Normal visualized pulmonary arteries. There is atherosclerotic tortuosity of the aortic arch and descending thoracic aorta. There are diffuse degenerative changes of the visualized thoracic spine. There is degenerative osteoarthritis of the bilateral shoulders. There is no demonstrated abnormality of the visualized soft tissue structures of the upper abdomen. RAD/Chest PA and Lateral IMPRESSION: No acute cardiopulmonary disease Electronically Signed: Ty Ferrell DO at 17:49 EDT Tel , Service support ,
--- NOTE | 2018-01-31 21:46 | ED.RN ---
right chest power port was accessed by day shift, flushed with saline and heparin flush and deaccessed prior to dc.
== END 2018-01-31 21:52 | disposition home or self-care (01) ==
PROVIDERS: Emergency Provider Emergency Medicine; Family Provider Internal Medicine; PCP Internal Medicine
DX: D64.9 Anemia, unspecified (principal); R06.00 Dyspnea, unspecified; R20.2 Paresthesia of skin; I89.0 Lymphedema, not elsewhere classified; C50.919 Malignant neoplasm of unspecified site of unspecified female breast; I10 Essential (primary) hypertension; R42 Dizziness and giddiness; J44.9 Chronic obstructive pulmonary disease, unspecified; E66.9 Obesity, unspecified; Z90.13 Acquired absence of bilateral breasts and nipples; Z87.891 Personal history of nicotine dependence; Z79.899 Other long term (current) drug therapy
CPT/HCPCS: 36430; 36591; 70450; 71046; 80053; 81001; 85025; 86850; 86900; 86920; 86922; 99284; J7040; P9016; A4216

== ENCOUNTER 2018-02-18 12:06 | Emergency (ER) | payer MEDICAID, SELFPAY ==
[2018-02-18 12:08] VITALS: BP 138/86; PULSE 122; RESP 17; TEMP 37; O2SAT 94; BMI 38.0
--- NOTE | 2018-02-18 12:19 | VDUE_ITS ---
Reason For Study: LUE swelling Left Proximal Left jugular vein is spontaneous, widely patent, phasic, with no intraluminal echogenicity noted. Left subclavian vein is spontaneous, widely patent, phasic, with no intraluminal echogenicity noted. Left Arm Left axillary vein is spontaneous, patent, phasic, competent, compressible and demonstrates augmentation. Left brachial vein is compressible. Left cephalic vein is compressible. Left basilic vein is compressible. Left Lower Arm Left radial vein is compressible. Left ulnar vein is compressible. < Interpretation Summary No evidence for acute deep venous thrombosis[left] upper extremity with patent and compressible cephalic and basilic veins. Ordering Physician: Nilson Doe Referring Physician: Leidy Walker Performed By: Joselin Medina RVT
--- NOTE | 2018-02-18 12:23 | ED.DCSUM_ITS ---
- ER Visit Summary Date of Service: 02/18/18 Chief Complaint: Left arm swelling History of Present Illness: The patient is a 57 F resents to the emergency department left arm swelling. The patient has a history of breast cancer. She has undergone bilateral mastectomy and lymph node resection of the left arm. She is currently undergoing radiation through the [facility]. She states she woke this morning and noticed swelling in her left arm into her wrist. She denies any pain. She does have some mild shortness of breath, but states that this feels chronic. The patient does have a history of anemia from her treatment and was transfused 2 weeks ago. She denies any increasing blood loss. She has no history of hypercoagulability. She denies any fevers or chills. Physical Examination: Patient is scant edema of the left arm. There are no palpable cords. There is no tenderness. Pulses are normal. She is status post bilateral mastectomy. There is no tenderness over the surgical site. Lungs are diminished in the bases. There is no wheezing. Abdomen soft. Lower extremities show 1+ symmetric edema. No palpable cords. Normal pulses. Test Results: [] Emergency Department Course and Treatment: The patient presents with mild edema of the left upper arm. I do feel that this is likely because of venous stasis or lymphedema from her prior mastectomy. However, given active malignancy I did obtain an ultrasound which shows no evidence of thrombosis. Her pulses are normal. The patient also has a history of anemia. I did obtain blood work which was unremarkable. On reevaluation she is resting comfortably. She is not hypoxic. I do not feel she has a pulmonary embolus. The patient will be discharged to home to continue her outpatient chemotherapy. Treatment Plan: [] Disposition: Discharge Impression:. Left upper extremity edema This note was generated with The [employer] software. It may contain incorrect words, spelling, and punctuation that were not noted in review of the chart prior to signing ED Disposition - Plan for ED Patient: Chief Complaint: Edema Instructions: ED Lymphedema Referrals: Joan Leigh MD [Primary Care Provider] -
[2018-02-18 13:06] LABS: Absolute Lymphocyte Count 1.08 X10^3/ul (0.83-4.51); Absolute Neutrophil Count 5.4 X10^3/uL (2.0-7.7); Basophil# 0.01 X10^3/uL; Basophil% 0.1 % (0-1); Eosinophil# 0.16 X10^3/uL; Eosinophils% 2.2 % (0-5); Hematocrit 37.8 % (37-47); Hemoglobin 12.1 g/dl (12.0-15.0); Lymphocyte # 1.08 X10^3/ul (4.0); Mean Corpuscular Hgb 27.4 pg (27.0-32.0); Mean Corpuscular Volume 85.7 fL (81-99); Mean Platelet Vol. 9.1 fl (6.2-12.0); Monocyte# 0.55 X10^3/uL; Monocyte% 7.6 % (0-10); Neutrophil # 5.37 X10^3/uL (2.7-7.7); Neutrophil % 74.8 % (47-70); POSITIVE COUNT NO; POSITIVE DIFFERENTIAL NO; POSITIVE MORPHOLOGY NO; Platelet Count 250 K/mm3 (150-450); RBC Distribution Width CV 14.5 % (11.6-14.6); RBC Distribution Width SD 45.1 fl (35.1-43.9); Red Blood Count 4.41 M/mm3 (4.2-5.4); White Blood Count 7.2 K/mm3 (4.4-11.0)
[2018-02-18 13:12] LABS: Anion Gap 5 (5-15); BUN 19 mg/dL (7-18); BUN/Creat Ratio 21.5 RATIO (10-20); Calcium,Total 8.8 mg/dL (8.5-10.1); Chloride 101 mmol/L (98-107); Creatinine, Serum 0.88 mg/dL (0.55-1.02); EST Glomerular Filtration Rate 70 mL/min (>60); Est Glom Filt Rate - Afr Amer 85 mL/min (>60); Estimated Creatinine Clearance 55.79 ml/min; Glucose 98 mg/dL (74-106); Potassium 3.5 mmol/L (3.5-5.1); Sodium Level 138 mmol/L (136-145)
[2018-02-18 13:34] VITALS: BP 114/67; PULSE 100; RESP 18; O2SAT 92
== END 2018-02-18 13:34 | disposition home or self-care (01) ==
LOC: ED 13:08
PROVIDERS: Emergency Provider Emergency Medicine; Family Provider Internal Medicine; PCP Internal Medicine
DX: R60.0 Localized edema (principal); C50.919 Malignant neoplasm of unspecified site of unspecified female breast; D64.81 Anemia due to antineoplastic chemotherapy; Z90.13 Acquired absence of bilateral breasts and nipples; Z79.899 Other long term (current) drug therapy
CPT/HCPCS: 36591; 80048; 85025; 86850; 86900; 93971; 99282; A4216

== ENCOUNTER 2018-02-22 14:30 | Observation (INO) | payer MEDICAID, SELFPAY ==
[2018-02-22] VITALS (11 sets, daily range): BP systolic 107–166; BP diastolic 61–88; PULSE 102–114; RESP 18–26; TEMP 35–38.1; O2SAT 89–99; BMI 37.9; BMI 37.1
--- NOTE | 2018-02-22 15:09 | EKG12_ITS ---
Test Reason : SOB Blood Pressure : / mmHG Vent. Rate : 104 BPM Atrial Rate : 104 BPM P-R Int : 158 ms QRS Dur : 096 ms QT Int : 362 ms P-R-T Axes : 067 040 063 degrees QTc Int : 476 ms Sinus tachycardia Low voltage QRS Borderline ECG Confirmed by CONRAD JOSE, VALENTINO ([id number]), school photograph editor GARCIA GUERIN ([id number]) on 02/24/2018 1:00:46 PM Referred By: SAQIB Confirmed By:VALENTINO MARTINES MD
--- NOTE | 2018-02-22 15:09 | RAD_ITS ---
STUDY: X-RAY CHEST REASON FOR EXAM: Female, 57 years old. Short of breath TECHNIQUE: Single AP portable view of the chest. COMPARISON: 01/31/2018. FINDINGS: A Mediport catheter terminates in the right atrium. The lungs are clear and expanded. Small calcified granuloma in the lower left lung is stable. There is no demonstrated pleural abnormality. Normal size heart. Normal mediastinum and hailey. Normal visualized pulmonary arteries. Normal visualized aortic arch and descending thoracic aorta. Normal visualized thoracic spine. Normal visualized ribs, clavicles, and shoulders. There is no demonstrated abnormality of the visualized soft tissue structures of the upper abdomen. RAD/Chest 1 View (Portable) IMPRESSION: No evidence for acute chest disease. Electronically Signed: Ty Nugent MD at 17:02 EDT , Service support ,
--- NOTE | 2018-02-22 15:14 | ED.VISSUMM ---
- ER Visit Summary Date of Service: 02/22/18 Chief Complaint: Shortness of breath History of Present Illness: The patient is a 57 F who is currently undergoing radiation therapy for breast cancer. The patient states that she is in the emergency room on February 18 with arm swelling. That has gotten better. At that time she had a negative duplex. The patient notes for the past the past week she has had increasing leg swelling. States that last night she had a hard night sleeping not being able to catch her breath and coughing. She notes dyspnea on exertion. She does not wear home oxygen. Triage notes her to be 89% on room air. States she has a history of COPD and takes inhalers for it but states does not really help her. Scheduled for colonoscopy and EGD as an outpatient with Dr. Walker tomorrow. Patient also notes a history of anemia and she was transfused about 2 weeks ago couple units. She states her hemoglobin level was 5. Fevers. She notes generalized myalgias which is chronic for her. Her heart rate during history is around 110. She states that she normally runs fast. However she cannot tell me exactly what fastest. Physical Examination: 147/88 temperature 98.5 heart rate of 105 respirations are 20 pulse ox is 95% on 2 L nasal cannula 89% on room air. Gen: Well-nourished well-developed Head: Normocephalic atraumatic Eyes: Perrl EOMI ENT: TMs clear no rhinorrhea moist mucous membranes Neck: Supple no lymphadenopathy no JVD nontender CVS: Regular rate rhythm no murmurs normal S1-S2 Respiratory: No distress clear to auscultation bilaterally chest nontender diminished breath sounds bilaterally Abdomen: Soft nontender nondistended normal bowel sounds no masses Back: Nontender Extremity: Nontender 2+ lower extremity edema (symmetric) Skin: Normal color no rash Neuro: alert orientated ?3 CN II-XII intact normal strength sensation Psych: Normal affect normal mood Test Results: EKG shows a sinus rhythm at a rate of 104. Natruretic peptide 47.5. Troponin negative. Chest x-ray negative. Patient was placed on supplemental oxygen and given a DuoNeb. No significant change in her lung sounds after the DuoNeb. CT Kena of the chest was obtained. No evidence of PE or dissection. No infiltrate. Severe emphysematous changes noted. ABG shows a pH of 7.465. PCO2 39.9. P0 275 on 2 L/min bicarb 28.7 Emergency Department Course and Treatment: Patient received additional aerosols and Solu-Medrol.. The patient ambulated from her room across the camacho to the bathroom and returned and was 75% on room air. She looked significantly dyspneic and ill. I do wonder if there is a role of radiation in the patient's symptoms. Radiation fibrosis? Our plan is admission into the hospital. Impression: 1. Dyspnea 2. COPD exacerbation 3. Hypoxemia This note was generated with [employer] dictation software. It may contain incorrect words, spelling, and punctuation that were not noted in review of the chart prior to signing ED Disposition - Plan for ED Patient: Chief Complaint: Shortness of Breath Referrals: Joan Leigh MD [Primary Care Provider] -
[2018-02-22] MEDS: Ipratropium/Albuterol Sulfate 3 ML AMPUL.NEB INHALATION ×2 (15:21→18:00)
--- NOTE | 2018-02-22 16:01 | ED.RN ---
PT WAS UP TO BATHROOM WITHOUT OXYGEN AND AMBULATED BACK TO ROOM, PT STRUGGLED TO CATCH HER BREATH, PULSE OX 75% ON R.A. OXYGEN IMMEDIATELY APPLIED. DR. CERRATO INFORMED OF SAME.
[2018-02-22 16:32] LABS: Absolute Lymphocyte Count 0.81 X10^3/ul (0.83-4.51); Absolute Neutrophil Count 7.5 X10^3/uL (2.0-7.7); Basophil# 0.01 X10^3/uL; Basophil% 0.1 % (0-1); Eosinophil# 0.11 X10^3/uL; Eosinophils% 1.3 % (0-5); Hematocrit 37.8 % (37-47); Hemoglobin 11.9 g/dl (12.0-15.0); Lymphocyte # 0.81 X10^3/ul (4.0); Lymphocyte % 9.2 % (19-41); Mean Corp Hgb Conc 31.5 g/gl (32-36); Mean Corpuscular Volume 85.7 fL (81-99); Mean Platelet Vol. 8.9 fl (6.2-12.0); Monocyte# 0.39 X10^3/uL; Monocyte% 4.4 % (0-10); Neutrophil # 7.46 X10^3/uL (2.7-7.7); Neutrophil % 84.9 % (47-70); Platelet Count 229 K/mm3 (150-450); RBC Distribution Width CV 14.4 % (11.6-14.6); RBC Distribution Width SD 45.2 fl (35.1-43.9); Red Blood Count 4.41 M/mm3 (4.2-5.4); White Blood Count 8.8 K/mm3 (4.4-11.0)
[2018-02-22 16:34] LABS: POSITIVE COUNT NO; POSITIVE DIFFERENTIAL NO; POSITIVE MORPHOLOGY NO
[2018-02-22 16:49] LABS: ALB/GLOB Ratio 0.9 RATIO (0.9-2.4); AST(SGOT) 17 U/L (15-37); Alanine Aminotransfer ALT/SGPT 27 U/L (13-56); Albumin, Serum 3.3 g/dL (3.2-5.0); Alkaline Phosphatase 116 U/L (45-117); Anion Gap 8 (5-15); BUN 17 mg/dL (7-18); BUN/Creat Ratio 17.3 RATIO (10-20); Calcium,Total 8.8 mg/dL (8.5-10.1); Chloride 99 mmol/L (98-107); Creatinine, Serum 0.98 mg/dL (0.55-1.02); EST Glomerular Filtration Rate 62 mL/min (>60); Est Glom Filt Rate - Afr Amer 75 mL/min (>60); Estimated Creatinine Clearance 50.09 ml/min; Globulin 3.6 g/dL (2.2-4.2); Glucose 110 mg/dL (74-106); Potassium 3.8 mmol/L (3.5-5.1); Protein, Total 6.9 g/dL (6.4-8.2); Sodium Level 136 mmol/L (136-145)
--- NOTE | 2018-02-22 16:50 | CT_ITS ---
STUDY: CTA CHEST REASON FOR EXAM: Female, 57 years old. Hypoxia and shortness breath. Breast cancer. COPD. RADIATION DOSAGE (If Supplied By Facility): CTDIvol = ( 13.63 ) mGy, DLP = ( 607.59 ) mGycm TECHNIQUE: The examination was performed with the intravenous administration of 100mL ml of Isovue 370 contrast material. Post-processing of the angiographic images was performed, with multiplanar reformation and 3D reconstruction. Individualized dose optimization techniques were used for this CT. COMPARISON: None. FINDINGS: Normal enhancement of the main pulmonary artery and right and left pulmonary arteries. Normal enhancement of the bilateral peripheral pulmonary arteries. There is no demonstrated pulmonary embolism. Normal thoracic aorta and visualized great vessels. There is no demonstrated aortic dissection. Normal heart and pericardium. There is a small pericardial effusion. There are calcified mediastinal lymph nodes. There are calcified right hilar lymph nodes. Normal visualized trachea and bronchi. The lungs are hyper expanded, with flattening of the hemidiaphragms. There is moderate to severe diffuse centrilobular emphysema. Normal pleura. There has been bilateral mastectomy. There are degenerative changes of thoracic spine. No acute abnormality in the upper abdomen. CT/CTA Chest W/WO Contrast IMPRESSION: No evidence for PE. Relatively severe emphysema. Electronically Signed: Ty Nugent MD at 17:35 EDT , Service support ,
[2018-02-22 16:55] LABS: BNP,B-Type NATRIURETIC PEPTIDE 47.5 pg/mL (0-100)
[2018-02-22] MEDS: Albuterol 2.5 MG/3 ML VIAL.NEB. INHALATION ×2 (18:00)
[2018-02-22] MEDS: MethylPREDNISolone 125 MG/2 ML Vial IV (18:02)
[2018-02-22 18:51] LABS: Allen Test POS; Base Excess 5 mmol/L (-2 to +2); Bicarbonate 28.7 mmol/L (22-26); Blood Gas Specimen Type ART; O2 Delivery Device Nasal Can; PO2 75 mmHG (75-100); SITE R Brachial; SO2 96 % (95-99); Time Given 1840; Total Carbon Dioxide 30 mmol/L; pCO2 39.9 mmHg (35-45); pH 7.47 (7.35-7.45)
--- NOTE | 2018-02-22 20:11 | PCM.HP.STD ---
Problem List (1) Shortness of breath Status: Acute (2) Nonproductive cough Status: Acute History of Present Illness Date of Admission: 02/22/18 Chief Complaint: Shortness of breath, nonproductive cough The patient is a 57 year old F was seen in the emergency room at [facility] with a chief complaint of cough last night and shortness of breath which started last night also. Patient denies any hemoptysis, purulent sputum production, fevers, or chills. Patient does complain of having a sore throat today. Patient states that she has a history of COPD in the past but has never been hospitalized for, she is always been treated in her physician's office for the COPD. Patient quit smoking 2-1/2 years ago, she smoked for approximately 40 years. She was diagnosed in December 2017 with breast cancer, she underwent a double mastectomy and is currently getting radiation treatment. Evaluation in the emergency room showed her pulse ox to be 89% at rest on room air, on examination, patient had some scattered expiratory wheezes which were not marked. Patient underwent a chest x-ray which showed no acute process, she then underwent a CTA of her chest which showed no evidence of PE but significant emphysema was noted to be present. Patient was given 2 aerosol treatments and IV Solu-Medrol, she required 2 L to maintain her pulse ox and she had an ABG drawn on 2 L which showed a pH of 7.47, PCO2 of 39, and PO2 of 75. Patient's labs were unremarkable. Patient will be admitted for acute exacerbation of COPD and hypoxia, she will be treated with IV Solu-Medrol and aggressive aerosol treatments, I do not feel she needs a respiratory panel performed. Past Medical History Allergies lisinopril Adverse Reaction (Verified 02/18/18 12:07) COUGH Home Medications: Ambulatory Orders Medication Instructions Recorded Fluoxetine [Prozac] 80 mg PO DAILY 12/10/14 buPROPion tablets [Wellbutrin 100 mg PO BID 12/10/14 tablets] Amitriptyline HCl [Elavil] 200 mg PO QHS 06/08/17 Omeprazole [Prilosec] 20 mg PO DAILY 06/08/17 Amlodipine Besylate [Norvasc] 5 mg PO DAILY 10/25/17 Losartan Potassium [Cozaar] 100 mg PO DAILY 10/25/17 Meclizine HCl [Antivert] 12.5 mg PO TID PRN PRN 10/25/17 Hydrochlorothiazide [Hctz] 25 mg PO DAILY 10/27/17 Ibuprofen [Motrin] 800 mg PO Q6H PRN 12/19/17 Letrozole [Femara] 2.5 mg PO DAILY 01/05/18 Acetaminophen/Codeine #3 1 tablet PO Q6H PRN PRN 02/18/18 [Tylenol#3] ALPRAZolam [Xanax] 0.25 mg PO DAILY 02/22/18 Surgical History: mastectomy - Double mastectomy, - - Breast biopsy Psychiatric History: Anxiety, Depression 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 Denies: Anorexia, Chills, Fever, Night Sweats, Malaise, Weakness, Weight Change Eyes: Denies: Blurred vision, Cataracts, Conjunctivae Inflammation, Double vision, Drainage, Pain, Redness, Vision Change HEENT: Reports: Sore Throat. Denies: Difficulty Hearing, Difficulty Swallowing, Dysphasia, Ear Pain, Eye Pain, Hard of Hearing, Head Aches, Hearing Changes, Nasal bleeding, Nasal Congestion, Post Nasal Drip, Sinus Congestion, Sinus Drainage Cardiovascular: Denies: Chest Pain, Claudication, Chest Pressure, Chest Tightness, Edema, Heaviness, Palpitations, Paroxysmal Noc. Dyspnea, Syncope Respiratory: Reports: Cough - Nonproductive cough last night, Shortness of Breath, Shortness of breath upon exertion. Denies: Hemoptysis, Pleuritic Pain, Sputum production Gastrointestinal: Denies: Abdominal Pain, Constipation, Diarrhea, Hematemesis, Hematochezia, Nausea, Melena, Vomiting Genitourinary: Denies: Dysuria, Frequency, Hematuria, Hesitancy, Incontinence, Nocturia, Retention, Urgency Gynecological: Reports: Breast symptoms - Recently diagnosed with breast cancer, underwent bilateral mastectomy Musculoskeletal: Denies: Back Pain, Foot Pain, Hand Pain, Joint Pain, Joint stiffness, Joint swelling, Joint Tenderness, Leg Pain, Muscle pain, Neck Pain, Shoulder Pain Skin: Denies: Dryness, Jaundice, Pruritis, Rash, Wounds Neurological: Denies: Balance problems, Blurred vision, Double vision, Slurred speech, Difficulty swallowing, Focal weakness, Headaches, Incoordination, Numbness, Tingling Psychiatric: Denies: Anxiety, Depression, Homicidal Ideations, Suicidal Ideations Endocrine: Reports: Hx of Irradiation - Currently undergoing radiation for breast cancer. Denies: Change in Body Habitus, Heat/ Cold Intolerance, Polydipsia, Polyuria Hematologic/ Lymphatic: Denies: Anemia, Easy Bruising, Easy Bleeding, Petechiae, Purpura VTE Information - Inpt Only VTE Present on Admission: No VTE Mechan Device Prophylaxis: None VTE Pharm Prophylaxis ordered?: Yes Patient Problems: Active and Suspected Problems Shortness of breath (Acute) Nonproductive cough (Acute) - Physical Exam General: Alert, Oriented x3, Cooperative, No apparent distress, Well developed, Well nourished HEENT: Atraumatic, PERRLA, EOMI, Normocephalic Oral: Moist Mucosa Neck: Supple, No JVD, Negative Carotid Bruits, No Nuchal Rigidity, Trachea Midline, Thyroid Normal Size and Texture Lungs: No rhonchi, No rales, Diminished, Wheezes - high pitched expiratory wheezes are scattered bilaterally Cardiovascular: Regular rate, Regular Rhythm, Normal S1, Normal S2, No murmurs, No Ectopic Activity, PMI Normal, No rub noted, No Gallop Abdomen: Bowel Sounds Present, Soft, Non Tender, Non-Distended, No hernias noted Extremities: No clubbing, No cyanosis, No edema, Capillary Refill Less than 3 Seconds Musculoskeletal: No Tenderness to Palpation of Joints or Extremities Neurological: Cranial nerves II-XII grossly intact, Neuro grossly intact, Muscle tone normal, Sensory exam intact to light touch and pain, Coordination normal Psych/Mental Status: Normal Affect, Appropriate, Alert and oriented to time, place, person, mood and affect Vital Signs Temp Pulse Resp BP Pulse Ox 98.5 F 114 H 20 H 163/73 H 94 02/22/18 14:31 02/22/18 19:57 02/22/18 19:57 02/22/18 19:57 02/22/18 19:57 Oxygen Flow Rate (L/min) 2 Oxygen Delivery Method Nasal Cannula Assessment/Plan Active and Suspected Problems Shortness of breath (Acute) Nonproductive cough (Acute) #1 acute exacerbation of COPD-patient will be admitted to MedSurg, she will be given aerosol treatments, IV Solu-Medrol, and monitored. #2 hypoxia secondary to #1-pulse ox will be monitored, oxygen will be adjusted and weaned if possible #3 hypertension #4 depression #5 anxiety #6 recently diagnosed breast cancer-undergoing radiation treatment at this time, status post double mastectomy Code Visit Inpatient E&M: 14729 Init Hosp L3
--- NOTE | 2018-02-22 20:22 | HP.PCM_ITS ---
Problem List (1) Shortness of breath Status: Acute (2) Nonproductive cough Status: Acute History of Present Illness Date of Admission: 02/22/18 Chief Complaint: Shortness of breath, nonproductive cough The patient is a 57 year old F was seen in the emergency room at [facility] with a chief complaint of cough last night and shortness of breath which started last night also. Patient denies any hemoptysis, purulent sputum production, fevers, or chills. Patient does complain of having a sore throat today. Patient states that she has a history of COPD in the past but has never been hospitalized for, she is always been treated in her physician's office for the COPD. Patient quit smoking 2-1/2 years ago, she smoked for approximately 40 years. She was diagnosed in December 2017 with breast cancer , she underwent a double mastectomy and is currently getting radiation treatment. Evaluation in the emergency room showed her pulse ox to be 89% at rest on room air, on examination, patient had some scattered expiratory wheezes which were not marked. Patient underwent a chest x-ray which showed no acute process, she then underwent a CTA of her chest which showed no evidence of PE but significant emphysema was noted to be present. Patient was given 2 aerosol treatments and IV Solu-Medrol, she required 2 L to maintain her pulse ox and she had an ABG drawn on 2 L which showed a pH of 7.47, PCO2 of 39, and PO2 of 75. Patient's labs were unremarkable. Patient will be admitted for acute exacerbation of COPD and hypoxia, she will be treated with IV Solu-Medrol and aggressive aerosol treatments, I do not feel she needs a respiratory panel performed. Past Medical History Allergies lisinopril Adverse Reaction (Verified 02/18/18 12:07) COUGH Home Medications: Ambulatory Orders Medication Instructions Recorded Fluoxetine [Prozac] 80 mg PO DAILY 12/10/14 buPROPion tablets [Wellbutrin 100 mg PO BID 12/10/14 tablets] Amitriptyline HCl [Elavil] 200 mg PO QHS 06/08/17 Omeprazole [Prilosec] 20 mg PO DAILY 06/08/17 Amlodipine Besylate [Norvasc] 5 mg PO DAILY 10/25/17 Losartan Potassium [Cozaar] 100 mg PO DAILY 10/25/17 Meclizine HCl [Antivert] 12.5 mg PO TID PRN PRN 10/25/17 Hydrochlorothiazide [Hctz] 25 mg PO DAILY 10/27/17 Ibuprofen [Motrin] 800 mg PO Q6H PRN 12/19/17 Letrozole [Femara] 2.5 mg PO DAILY 01/05/18 Acetaminophen/Codeine #3 1 tablet PO Q6H PRN PRN 02/18/18 [Tylenol#3] ALPRAZolam [Xanax] 0.25 mg PO DAILY 02/22/18 Surgical History: mastectomy - Double mastectomy, - - Breast biopsy Psychiatric History: Anxiety, Depression 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 Denies: Anorexia, Chills, Fever, Night Sweats , Malaise, Weakness, Weight Change Eyes: Denies: Blurred vision, Cataracts, Conjunctivae Inflammation, Double vision, Drainage, Pain, Redness, Vision Change HEENT: Reports: Sore Throat. Denies: Difficulty Hearing, Difficulty Swallowing , Dysphasia, Ear Pain, Eye Pain, Hard of Hearing, Head Aches, Hearing Changes, Nasal bleeding, Nasal Congestion, Post Nasal Drip, Sinus Congestion, Sinus Drainage Cardiovascular: Denies: Chest Pain, Claudication, Chest Pressure, Chest Tightness, Edema, Heaviness, Palpitations, Paroxysmal Noc. Dyspnea, Syncope Respiratory: Reports: Cough - Nonproductive cough last night, Shortness of Breath, Shortness of breath upon exertion. Denies: Hemoptysis, Pleuritic Pain, Sputum production Gastrointestinal: Denies: Abdominal Pain, Constipation, Diarrhea, Hematemesis, Hematochezia, Nausea, Melena, Vomiting Genitourinary: Denies: Dysuria, Frequency, Hematuria, Hesitancy, Incontinence, Nocturia, Retention, Urgency Gynecological: Reports: Breast symptoms - Recently diagnosed with breast cancer , underwent bilateral mastectomy Musculoskeletal: Denies: Back Pain, Foot Pain, Hand Pain, Joint Pain, Joint stiffness, Joint swelling, Joint Tenderness, Leg Pain, Muscle pain, Neck Pain, Shoulder Pain Skin: Denies: Dryness, Jaundice, Pruritis, Rash, Wounds Neurological: Denies: Balance problems, Blurred vision, Double vision, Slurred speech, Difficulty swallowing, Focal weakness, Headaches, Incoordination, Numbness, Tingling Psychiatric: Denies: Anxiety, Depression, Homicidal Ideations, Suicidal Ideations Endocrine: Reports: Hx of Irradiation - Currently undergoing radiation for breast cancer. Denies: Change in Body Habitus, Heat/ Cold Intolerance, Polydipsia, Polyuria Hematologic/ Lymphatic: Denies: Anemia, Easy Bruising, Easy Bleeding, Petechiae , Purpura VTE Information - Inpt Only VTE Present on Admission: No VTE Mechan Device Prophylaxis: None VTE Pharm Prophylaxis ordered?: Yes Patient Problems: Active and Suspected Problems Shortness of breath (Acute) Nonproductive cough (Acute) - Physical Exam General: Alert, Oriented x3, Cooperative, No apparent distress, Well developed, Well nourished HEENT: Atraumatic, PERRLA, EOMI, Normocephalic Oral: Moist Mucosa Neck: Supple, No JVD, Negative Carotid Bruits, No Nuchal Rigidity, Trachea Midline, Thyroid Normal Size and Texture Lungs: No rhonchi, No rales, Diminished, Wheezes - high pitched expiratory wheezes are scattered bilaterally Cardiovascular: Regular rate, Regular Rhythm, Normal S1, Normal S2, No murmurs, No Ectopic Activity, PMI Normal, No rub noted, No Gallop Abdomen: Bowel Sounds Present, Soft, Non Tender, Non-Distended, No hernias noted Extremities: No clubbing, No cyanosis, No edema, Capillary Refill Less than 3 Seconds Musculoskeletal: No Tenderness to Palpation of Joints or Extremities Neurological: Cranial nerves II-XII grossly intact, Neuro grossly intact, Muscle tone normal, Sensory exam intact to light touch and pain, Coordination normal Psych/Mental Status: Normal Affect, Appropriate, Alert and oriented to time, place, person, mood and affect Vital Signs Temp Pulse Resp BP Pulse Ox 98.5 F 114 H 20 H 163/73 H 94 02/22/18 14:31 02/22/18 19:57 02/22/18 19:57 02/22/18 19:57 02/22/18 19:57 Oxygen Flow Rate (L/min) 2 Oxygen Delivery Method Nasal Cannula Assessment/Plan Active and Suspected Problems Shortness of breath (Acute) Nonproductive cough (Acute) #1 acute exacerbation of COPD-patient will be admitted to MedSurg, she will be given aerosol treatments, IV Solu-Medrol, and monitored. #2 hypoxia secondary to #1-pulse ox will be monitored, oxygen will be adjusted and weaned if possible #3 hypertension #4 depression #5 anxiety #6 recently diagnosed breast cancer-undergoing radiation treatment at this time , status post double mastectomy Code Visit Inpatient E&M: 39746 Init Hosp L3
[2018-02-22] MEDS: ALPRAZolam 0.25 MG Tablet PO (22:32)
[2018-02-22] MEDS: buPROPion 100 MG Tablet PO (22:32)
[2018-02-22] MEDS: Amitriptyline 100 MG Tablet 200 MG PO (22:32)
[2018-02-22] MEDS: 0.9% NaCl VAD Flush 10 ML IV (22:33)
[2018-02-23] VITALS (10 sets, daily range): BP systolic 115–138; BP diastolic 56–65; PULSE 84–112; RESP 14–20; TEMP 36.4–36.9; O2SAT 92–97
[2018-02-23] MEDS: Ipratropium/Albuterol Sulfate 3 ML AMPUL.NEB INHALATION ×4 (01:23→19:04)
[2018-02-23] MEDS: 0.9% NaCl VAD Flush 10 ML IV ×3 (06:04→21:47)
--- NOTE | 2018-02-23 08:45 | PCM.PN.HOSP ---
Patient Problems: Active and Suspected Problems Shortness of breath (Acute) Nonproductive cough (Acute) Subjective: Patient with no acute events overnight per self and per nursing report. She states she is breathing better and has less coughing and less wheezing. She denies not being on any oxygen at home and states she does not follow with pulmonary medicine outpatient. Patient denies fevers, chills, nausea, emesis, abdominal pain, chest pain or worsened dyspnea. Objective: Physical Examination: General: awake, alert, oriented x 3 and cooperative, seated upright in bed in no apparent distress. Skin: normal color, turgor, no icterus, cyanosis. HEENT: AT/NC, EOMI, PERRLA, mildly dry MM. Lungs: Diffusely diminished breath sounds, greater bases, mild effort, no wheezing currently. Heart: Regular rate and rhythm; no gallop, rub audible. Abdomen: soft, obese, NTTP, ND, normal BS. Extremities: no cyanosis, clubbing, or edema. Neurological: patient awake, alert, oriented x 3; cognitive function intact; pupils equally reactive to light and accomodation; cranial nerves II-XII grossly normal, moving all 4 extremities, no focal deficits, strength globally decreased secondary to acute presentation. Psychiatric: affect appears normal, no acute evidence of depressive or anxiety feelings. Vitals/I&O's: Vital Signs Temp Pulse Resp BP Pulse Ox 97.7 F L 84 20 H 138/58 H 92 02/23/18 02:52 02/23/18 06:48 02/23/18 06:48 02/23/18 02:52 02/23/18 06:48 Oxygen Flow Rate (L/min) 3 Oxygen Delivery Method Nasal Cannula Weight: 203 lb 0.732 oz Body Mass Index (BMI) 37.1 Intake and Output for Last 24 Hours 02/21/18 02/22/18 02/23/18 23:59 23:59 23:59 Intake Total 300 / 300 Balance 300 / 300 Current Medications Acetaminophen (Tylenol) 650 mg PO Q6H PRN PRN PRN Reason: Mild Pain (1-3)/Temp > 100.7 F Albuterol Sulfate (Ventolin Aerosols) 2.5 mg INHALATION Q2H PRN PRN PRN Reason: DYSPNEA Albuterol/Ipratropium (Duoneb) 3 ml INHALATION Q6H.RT MARISSA Last Admin: 02/23/18 06:43 Dose: 3 ml Alprazolam (Xanax) 0.25 mg PO QHS [facility] Last Admin: 02/22/18 22:32 Dose: 0.25 mg Amitriptyline HCl (Elavil) 200 mg PO QHS [facility] Last Admin: 02/22/18 22:32 Dose: 200 mg Amlodipine Besylate (Norvasc) 5 mg PO DAILY [facility] Bupropion HCl (Wellbutrin Tablets) 100 mg PO BID [facility] Last Admin: 02/22/18 22:32 Dose: 100 mg Enoxaparin Sodium (Lovenox) 40 mg SC DAILY@1000 MARISSA Fluoxetine HCl (Prozac) 80 mg PO DAILY [facility] Heparin Sodium (Beef Lung) (Heparin 500 Unit/5 Ml (100/Ml)) 500 unit IV UD PRN PRN Reason: HEPARIN FLUSH Hydrochlorothiazide (Hctz) 25 mg PO DAILY [facility] Ibuprofen (Motrin) 600 mg PO Q6H PRN PRN PRN Reason: MILD PAIN (-01/07) Letrozole (Femara) 2.5 mg PO DAILY [facility] Losartan Potassium (Cozaar) 100 mg PO DAILY [facility] Meclizine HCl (Antivert) 12.5 mg PO TID PRN PRN PRN Reason: Vertigo Methylprednisolone (Solu-Medrol) 40 mg IV Q8 [facility] Last Admin: 02/23/18 06:04 Dose: 40 mg Pantoprazole Sodium (Protonix) 20 mg PO DAILY [facility] Sodium Chloride () 10 ml IV UD PRN PRN Reason: VAD FLUSH Last Admin: 02/23/18 06:04 Dose: 10 ml Medical Necessity - Tobacco Use Smoking Status: Former smoker Tobacco Use: Non-smoker Assessment/Plan Active and Suspected Problems Shortness of breath (Acute) Nonproductive cough (Acute) The patient is a 57 y/o F w/ PMHx: Anxiety and Depression, HTN, Chronic COPD, Obesity, Former Tobacco use, Recent 12/2017 Dx Breast CA s/p BL Mastectomy currently undergoing radiation who presents to the [facility] ED on 02/22/18 with ongoing progressively worsening shortness of breath, mildly productive cough with no fevers or chills ?48 hours. (1) Acute on chronic COPD exacerbation: CXR w/ chronic changes, CBC upon admit with WBC 8.8 without marked shift. Admitted to [facility] maintain on oxygen with wean as tolerated to room air, continue ATC duonebs, PRN albuterol, IV methylprednisolone with prednisone transition likely 02/24/18 AM, HOB, IS parameters, deferred abx given unremarkable CBC and afebrile, pending respiratory viral panel and sputum cx requested. (2) Breast CA, Unclear Type: Recent 12/2017 Dx Breast CA s/p BL Mastectomy currently undergoing radiation, mag and phos pending. (3) Hypertension: Continue home regimen including Norvasc, losartan, HCTZ, PRN hydralazine. (4) Anxiety and Depression: Maintain on home regimen Xanax, Elavil, Prozac. (5) Obesity: Weight loss and lifestyle changes encouraged. (6) GERD: Maintain on home pantoprazole regimen. (7) DVT prophylaxis: SCDs, Lovenox. Code Visit Inpatient E&M: 76198 Subs Hosp L2
--- NOTE | 2018-02-23 08:53 | PN_ITS ---
Patient Problems: Active and Suspected Problems Shortness of breath (Acute) Nonproductive cough (Acute) Subjective: Patient with no acute events overnight per self and per nursing report. She states she is breathing better and has less coughing and less wheezing. She denies not being on any oxygen at home and states she does not follow with pulmonary medicine outpatient. Patient denies fevers, chills, nausea, emesis, abdominal pain, chest pain or worsened dyspnea. Objective: Physical Examination: General: awake, alert, oriented x 3 and cooperative, seated upright in bed in no apparent distress. Skin: normal color, turgor, no icterus, cyanosis. HEENT: AT/NC, EOMI, PERRLA, mildly dry MM. Lungs: Diffusely diminished breath sounds, greater bases, mild effort, no wheezing currently. Heart: Regular rate and rhythm; no gallop, rub audible. Abdomen: soft, obese, NTTP, ND, normal BS. Extremities: no cyanosis, clubbing, or edema. Neurological: patient awake, alert, oriented x 3; cognitive function intact; pupils equally reactive to light and accomodation; cranial nerves II-XII grossly normal, moving all 4 extremities, no focal deficits, strength globally decreased secondary to acute presentation. Psychiatric: affect appears normal, no acute evidence of depressive or anxiety feelings. Vitals/I&O's: Vital Signs Temp Pulse Resp BP Pulse Ox 97.7 F L 84 20 H 138/58 H 92 02/23/18 02:52 02/23/18 06:48 02/23/18 06:48 02/23/18 02:52 02/23/18 06:48 Oxygen Flow Rate (L/min) 3 Oxygen Delivery Method Nasal Cannula Weight: 203 lb 0.732 oz Body Mass Index (BMI) 37.1 Intake and Output for Last 24 Hours 02/21/18 02/22/18 02/23/18 23:59 23:59 23:59 Intake Total 300 / 300 Balance 300 / 300 Current Medications Acetaminophen (Tylenol) 650 mg PO Q6H PRN PRN PRN Reason: Mild Pain (1-3)/Temp > 100.7 F Albuterol Sulfate (Ventolin Aerosols) 2.5 mg INHALATION Q2H PRN PRN PRN Reason: DYSPNEA Albuterol/Ipratropium (Duoneb) 3 ml INHALATION Q6H.RT MARISSA Last Admin: 02/23/18 06:43 Dose: 3 ml Alprazolam (Xanax) 0.25 mg PO QHS [facility] Last Admin: 02/22/18 22:32 Dose: 0.25 mg Amitriptyline HCl (Elavil) 200 mg PO QHS [facility] Last Admin: 02/22/18 22:32 Dose: 200 mg Amlodipine Besylate (Norvasc) 5 mg PO DAILY [facility] Bupropion HCl (Wellbutrin Tablets) 100 mg PO BID [facility] Last Admin: 02/22/18 22:32 Dose: 100 mg Enoxaparin Sodium (Lovenox) 40 mg SC DAILY@1000 MARISSA Fluoxetine HCl (Prozac) 80 mg PO DAILY [facility] Heparin Sodium (Beef Lung) (Heparin 500 Unit/5 Ml (100/Ml)) 500 unit IV UD PRN PRN Reason: HEPARIN FLUSH Hydrochlorothiazide (Hctz) 25 mg PO DAILY [facility] Ibuprofen (Motrin) 600 mg PO Q6H PRN PRN PRN Reason: MILD PAIN (-01/07) Letrozole (Femara) 2.5 mg PO DAILY [facility] Losartan Potassium (Cozaar) 100 mg PO DAILY [facility] Meclizine HCl (Antivert) 12.5 mg PO TID PRN PRN PRN Reason: Vertigo Methylprednisolone (Solu-Medrol) 40 mg IV Q8 [facility] Last Admin: 02/23/18 06:04 Dose: 40 mg Pantoprazole Sodium (Protonix) 20 mg PO DAILY [facility] Sodium Chloride () 10 ml IV UD PRN PRN Reason: VAD FLUSH Last Admin: 02/23/18 06:04 Dose: 10 ml Medical Necessity - Tobacco Use Smoking Status: Former smoker Tobacco Use: Non-smoker Assessment/Plan Active and Suspected Problems Shortness of breath (Acute) Nonproductive cough (Acute) The patient is a 57 y/o F w/ PMHx: Anxiety and Depression, HTN, Chronic COPD, Obesity, Former Tobacco use, Recent 12/2017 Dx Breast CA s/p BL Mastectomy currently undergoing radiation who presents to the [facility] ED on 02/22/18 with ongoing progressively worsening shortness of breath, mildly productive cough with no fevers or chills ?48 hours. (1) Acute on chronic COPD exacerbation: CXR w/ chronic changes, CBC upon admit with WBC 8.8 without marked shift. Admitted to [place] maintain on oxygen with wean as tolerated to room air, continue ATC duonebs, PRN albuterol, IV methylprednisolone with prednisone transition likely 02/24/18 AM, HOB, IS parameters, deferred abx given unremarkable CBC and afebrile, pending respiratory viral panel and sputum cx requested. (2) Breast CA, Unclear Type: Recent 12/2017 Dx Breast CA s/p BL Mastectomy currently undergoing radiation, mag and phos pending. (3) Hypertension: Continue home regimen including Norvasc, losartan, HCTZ, PRN hydralazine. (4) Anxiety and Depression: Maintain on home regimen Xanax, Elavil, Prozac. (5) Obesity: Weight loss and lifestyle changes encouraged. (6) GERD: Maintain on home pantoprazole regimen. (7) DVT prophylaxis: SCDs, Lovenox. Code Visit Inpatient E&M: 72691 Subs Hosp L2
[2018-02-23] MEDS: FLUoxetine 20 MG Capsule 80 MG PO (10:12)
[2018-02-23] MEDS: Losartan Potassium 100 MG Tablet PO (10:12)
[2018-02-23] MEDS: buPROPion 100 MG Tablet PO ×2 (10:13→21:46)
[2018-02-23] MEDS: amLODIPine 5 MG Tablet PO (10:13)
[2018-02-23] MEDS: hydroCHLOROthiazide 25 MG Tablet PO (10:13)
[2018-02-23] MEDS: Enoxaparin 40 MG/0.4 ML Syringe SC (10:13)
[2018-02-23] MEDS: Pantoprazole Sodium 20 MG Tablet PO (10:13)
[2018-02-23 10:27] LABS: Magnesium 2.2 mg/dL (1.6-2.6); Phosphorus 3.7 mg/dL (2.5-4.9)
--- NOTE | 2018-02-23 11:23 | CASEMGMT ---
See assessment. SW spoke w/pt in room. Pt lives alone, is independent at home. Pt reports brother is supportive, as well as father. Pt is not on home O2, has had difficulty getting up the steps at home. SW/CM will follow for possible home O2 needs. Pt has a CPap from [employer] that needs returned. Otherwise, she does not have a preference for O2 company. Pt has not completed LW/POA forms, she has them at home but has not filled them out. SW offered to assist, pt plans to wait. SW encouraged her to speak w/whomever she puts as her POA in regard to her wishes. SW spoke w/pt also regarding her recent surgery and treatment, and history of depression. Pt states right now she is doing okay, but she could be crying in 15 minutes. She explains that yesterday was her last radiation treatment, and she already had chemo. Pt states she has not been sick or in the hospital at all except when she had children(she has 4, says they are also supportive). So this was a big change for her. Pt resports is in AA, and has been sober for four years. Pt reports supportive friends and fellow AA members, a supportive sponsor also, in addition to supportive family. Pt is not interested in counseling at this time. Pt feels she has people she can speak with when having a difficult time. Pt declines counseling referral at this time. SW/CM to watch for possible home O2, otherwise, no other needs anticipated. LAZARA Ferrara, [employer]
[2018-02-23] MEDS: Amitriptyline 100 MG Tablet 200 MG PO (21:46)
[2018-02-23] MEDS: Mineral Oil/Petrolatum Cr 1.75oz Bottle 1 APPLIC TOPICAL (21:47)
[2018-02-23] MEDS: ALPRAZolam 0.25 MG Tablet PO (21:47)
[2018-02-24] VITALS (8 sets, daily range): BP systolic 117–148; BP diastolic 63–77; PULSE 93–113; RESP 14–18; TEMP 36.8–37.1; O2SAT 87–98
[2018-02-24] MEDS: Ipratropium/Albuterol Sulfate 3 ML AMPUL.NEB INHALATION ×3 (01:29→13:01)
[2018-02-24] MEDS: 0.9% NaCl VAD Flush 10 ML IV ×2 (05:04→13:55)
[2018-02-24 05:30] LABS: Absolute Lymphocyte Count 0.49 X10^3/ul (0.83-4.51); Absolute Neutrophil Count 12.4 X10^3/uL (2.0-7.7); Differential Indicated SCAN CRITERIA MET; Hematocrit 37.4 % (37-47); Hemoglobin 11.8 g/dl (12.0-15.0); Lymphocyte # 0.49 X10^3/ul (4.0); Lymphocyte % 3.7 % (19-41); Mean Corp Hgb Conc 31.6 g/gl (32-36); Mean Corpuscular Hgb 27.4 pg (27.0-32.0); Mean Corpuscular Volume 86.8 fL (81-99); Mean Platelet Vol. 9.2 fl (6.2-12.0); Neutrophil # 12.35 X10^3/uL (2.7-7.7); Neutrophil % 93.1 % (47-70); POSITIVE COUNT NO; POSITIVE DIFFERENTIAL YES; POSITIVE MORPHOLOGY NO; Platelet Count 254 K/mm3 (150-450); RBC Distribution Width CV 14.6 % (11.6-14.6); RBC Distribution Width SD 46.9 fl (35.1-43.9); Red Blood Count 4.31 M/mm3 (4.2-5.4); White Blood Count 13.3 K/mm3 (4.4-11.0)
[2018-02-24 05:43] LABS: Anion Gap 6 (5-15); BUN 23 mg/dL (7-18); BUN/Creat Ratio 25.6 RATIO (10-20); Calcium,Total 9.1 mg/dL (8.5-10.1); Chloride 98 mmol/L (98-107); EST Glomerular Filtration Rate 69 mL/min (>60); Est Glom Filt Rate - Afr Amer 83 mL/min (>60); Estimated Creatinine Clearance 54.55 ml/min; Glucose 173 mg/dL (74-106); Potassium 3.7 mmol/L (3.5-5.1); Sodium Level 137 mmol/L (136-145)
[2018-02-24 06:01] LABS: Differential Comment SCANNED
[2018-02-24 07:25] LABS: Hemoglobin A1c 5.8 % (4.2-6.3)
[2018-02-24] MEDS: predniSONE 20 MG Tablet 40 MG PO (07:52)
--- NOTE | 2018-02-24 09:01 | PCM.DC ---
- Discharge Diagnoses Current Active Problems: Current Active and Chronic Problems (1) Acute on chronic COPD exacerbation (2) Breast CA, Unclear Type, Recent 12/2017 Dx Breast CA s/p BL Mastectomy currently undergoing radiation and chemotherapy (3) Hypertension (4) Anxiety and Depression (5) Obesity (6) GERD You will use the following diet at home:: Cardiac Your food should be the consistency of: Regular Your liquids should be the consistency of: Regular/Thin Discharge Activity: - - Avoid aggressive activity until re-evaluation per Primary care physician. May resume sexual activity in: 10-14 days Weight Bearing Status: Weight bearing as tolerated Call your doctor if you observe: Fever of 101 or Higher, Inability to urinate, Inability to have a bowel movement, Shortness of breath, Dizziness, Fainting spells, Chest pain, Uncontrolled pain Instructions: What is COPD?, Chronic Lung Disease: Preventing Lung Infections, What Is Emphysema?, Resources for Chronic Lung Disease, Caring for Your Inhaler, Using an Inhaler with a Spacer, Using an Inhaler Without a Spacer, COPD: Using Inhalers, Discharge Instructions: Using a Metered-Dose Inhaler Additional Instructions: You noted ongoing anxiety and depression during your admission. You are already on notable regimen w/ wellbutrin and prozac. We have discontinued your xanax and transitioned you to low dose PRN ativan. Please consider discussion with your primary care physician to arrange counseling and evaluation with psychiatry in order to achieve improvement. You have been started on a COPD regimen to better control your symptoms and also attempt to avoid need for hospitalization. Please continue usage of the scheduled advair and use albuterol as needed for breakthrough symptoms. Please keep a log of your albuterol usage to bring with you to your pulmonary follow-up. Allergies/Adverse Reactions: Allergies lisinopril Adverse Reaction (Verified 02/18/18 12:07) COUGH Medications to take at Discharge Fluoxetine [Prozac] 80 mg PO DAILY 12/10/14 buPROPion tablets [Wellbutrin tablets] 100 mg PO BID 12/10/14 Amitriptyline HCl [Elavil] 200 mg PO QHS 06/08/17 Omeprazole [Prilosec] 20 mg PO DAILY 06/08/17 Amlodipine Besylate [Norvasc] 5 mg PO DAILY 10/25/17 Losartan Potassium [Cozaar] 100 mg PO DAILY 10/25/17 Meclizine HCl [Antivert] 12.5 mg PO TID PRN PRN 10/25/17 Hydrochlorothiazide [Hctz] 25 mg PO DAILY 10/27/17 Ibuprofen [Motrin] 800 mg PO Q6H PRN 12/19/17 Letrozole [Femara] 2.5 mg PO DAILY 01/05/18 Acetaminophen/Codeine #3 [Tylenol #3 Tablet] 1 tablet PO Q6H PRN PRN 02/18/18 Albuterol IH (ProAir) [Proair Hfa] 1 - 2 puff INHALATION Q4H PRN PRN #1 inhaler 02/24/18 Fluticasone/Salmeterol [Advair 250-50 Diskus] 1 ea IH BID #1 blst.w.dev 02/24/18 Guaifenesin [Mucinex] 1,200 mg PO BID #20 tbmp.12hr 02/24/18 Lorazepam [Ativan] 0.5 mg PO BID PRN 5 Days #10 tab 02/24/18 Mineral Oil/Petrolatum Cr [Aquaphor] 1 applic TOPICAL PRN PRN #1 bottle 02/24/18 Prednisone 10 mg PO UD #30 tab 02/24/18 The following prescriptions were given: Albuterol IH (ProAir) [Proair Hfa] 1 - 2 puff INHALATION Q4H PRN PRN #1 inhaler PRN Reason: dyspnea, wheezing Mineral Oil/Petrolatum Cr [Aquaphor] 1 applic TOPICAL PRN PRN #1 bottle PRN Reason: RADIATION AREAS Prednisone 10 mg PO UD #30 tab Fluticasone/Salmeterol [Advair 250-50 Diskus] 1 ea IH BID #1 blst.w.dev Guaifenesin [Mucinex] 1,200 mg PO BID #20 tbmp.12hr Lorazepam [Ativan] 0.5 mg PO BID PRN 5 Days #10 tab PRN Reason: Anxiety Primary Care Physician: Joan Leigh MD [Primary Care Provider] - Please follow up with your Primary Care Physician in: Follow-up within 3-5 days. Please Follow Up With: Felipe Cason, When: Please follow-up to establish, may see DELIVERY RECRUITER, 1-2 weeks. Proposed Discharge Date: 02/24/18
--- NOTE | 2018-02-24 09:06 | DCINST_ITS ---
- Discharge Diagnoses Current Active Problems: Current Active and Chronic Problems (1) Acute on chronic COPD exacerbation (2) Breast CA, Unclear Type, Recent 12/2017 Dx Breast CA s/p BL Mastectomy currently undergoing radiation and chemotherapy (3) Hypertension (4) Anxiety and Depression (5) Obesity (6) GERD You will use the following diet at home:: Cardiac Your food should be the consistency of: Regular Your liquids should be the consistency of: Regular/Thin Discharge Activity: - - Avoid aggressive activity until re-evaluation per Primary care physician. May resume sexual activity in: 10-14 days Weight Bearing Status: Weight bearing as tolerated Call your doctor if you observe: Fever of 101 or Higher, Inability to urinate, Inability to have a bowel movement, Shortness of breath, Dizziness, Fainting spells, Chest pain, Uncontrolled pain Instructions: What is COPD?, Chronic Lung Disease: Preventing Lung Infections, What Is Emphysema?, Resources for Chronic Lung Disease, Caring for Your Inhaler , Using an Inhaler with a Spacer, Using an Inhaler Without a Spacer, COPD: Using Inhalers, Discharge Instructions: Using a Metered-Dose Inhaler Additional Instructions: You noted ongoing anxiety and depression during your admission. You are already on notable regimen w/ wellbutrin and prozac. We have discontinued your xanax and transitioned you to low dose PRN ativan. Please consider discussion with your primary care physician to arrange counseling and evaluation with psychiatry in order to achieve improvement. You have been started on a COPD regimen to better control your symptoms and also attempt to avoid need for hospitalization. Please continue usage of the scheduled advair and use albuterol as needed for breakthrough symptoms. Please keep a log of your albuterol usage to bring with you to your pulmonary follow-up. Allergies/Adverse Reactions: Allergies lisinopril Adverse Reaction (Verified 02/18/18 12:07) COUGH Medications to take at Discharge Fluoxetine [Prozac] 80 mg PO DAILY 12/10/14 buPROPion tablets [Wellbutrin tablets] 100 mg PO BID 12/10/14 Amitriptyline HCl [Elavil] 200 mg PO QHS 06/08/17 Omeprazole [Prilosec] 20 mg PO DAILY 06/08/17 Amlodipine Besylate [Norvasc] 5 mg PO DAILY 10/25/17 Losartan Potassium [Cozaar] 100 mg PO DAILY 10/25/17 Meclizine HCl [Antivert] 12.5 mg PO TID PRN PRN 10/25/17 Hydrochlorothiazide [Hctz] 25 mg PO DAILY 10/27/17 Ibuprofen [Motrin] 800 mg PO Q6H PRN 12/19/17 Letrozole [Femara] 2.5 mg PO DAILY 01/05/18 Acetaminophen/Codeine #3 [Tylenol #3 Tablet] 1 tablet PO Q6H PRN PRN 02/18/18 Albuterol IH (ProAir) [Proair Hfa] 1 - 2 puff INHALATION Q4H PRN PRN #1 inhaler 02/24/18 Fluticasone/Salmeterol [Advair 250-50 Diskus] 1 ea IH BID #1 blst.w.dev Guaifenesin [Mucinex] 1,200 mg PO BID #20 tbmp.12hr 02/24/18 Lorazepam [Ativan] 0.5 mg PO BID PRN 5 Days #10 tab 02/24/18 Mineral Oil/Petrolatum Cr [Aquaphor] 1 applic TOPICAL PRN PRN #1 bottle Prednisone 10 mg PO UD #30 tab 02/24/18 The following prescriptions were given: Albuterol IH (ProAir) [Proair Hfa] 1 - 2 puff INHALATION Q4H PRN PRN #1 inhaler PRN Reason: dyspnea, wheezing Mineral Oil/Petrolatum Cr [Aquaphor] 1 applic TOPICAL PRN PRN #1 bottle PRN Reason: RADIATION AREAS Prednisone 10 mg PO UD #30 tab Fluticasone/Salmeterol [Advair 250-50 Diskus] 1 ea IH BID #1 blst.w.dev Guaifenesin [Mucinex] 1,200 mg PO BID #20 tbmp.12hr Lorazepam [Ativan] 0.5 mg PO BID PRN 5 Days #10 tab PRN Reason: Anxiety Primary Care Physician: Joan Leigh MD [Primary Care Provider] - Please follow up with your Primary Care Physician in: Follow-up within 3-5 days. Please Follow Up With: Felipe Cason, When: Please follow-up to establish, may see P[employer]PENTER, 1-2 weeks. Proposed Discharge Date: 02/24/18
--- NOTE | 2018-02-24 09:09 | PCM.DC.SUM ---
Discharge Date and Diagnosis - Problem List Patient Problems: Active and Suspected Problems Shortness of breath (Acute) Nonproductive cough (Acute) Date of Admission: 02/22/18 Date of Discharge: 02/24/18 - Primary Discharge Diagnosis Active and Suspected Problems (1) Acute on chronic COPD exacerbation w/ Hypoxia (Required oxygen supplementation upon discharge) (2) Breast CA, Unclear Type, Recent 12/2017 Dx Breast CA s/p BL Mastectomy currently undergoing radiation and chemotherapy (3) Hypertension (4) Anxiety and Depression (5) Obesity (6) GERD - Secondary Discharge Diagnosis (1) Chronic COPD exacerbation, not on medical therapy (2) Breast CA, Unclear Type, Recent 12/2017 Dx Breast CA s/p BL Mastectomy currently undergoing radiation and chemotherapy (3) Hypertension (4) Anxiety and Depression (5) Obesity (6) GERD Hospital Course and Treatment Operations: None Procedures: EKG Summary of Care Provided: The patient is a 57 y/o F w/ PMHx: Anxiety and Depression, HTN, Chronic COPD not on regimen, Obesity, Former Tobacco use, Recent 12/2017 Dx Breast CA s/p BL Mastectomy currently undergoing radiation and chemotherapy who presents to the [facility] ED on 02/22/18 with ongoing progressively worsening shortness of breath, mildly productive cough with no fevers or chills ?48 hours. CXR w/ chronic changes, CBC upon admit with WBC 8.8 without marked shift. Admitted to [place], maintained on oxygen with wean as tolerated to room air, continued ATC duonebs, PRN albuterol, IV methylprednisolone with prednisone transition 02/24/18 AM, HOB, IS parameters, deferred abx given unremarkable CBC and afebrile, respiratory viral panel unremarkable. Aquaphor used on radiation pinzon and given ongoing chemotherapy patient maintained on precautions and mag/phos obtained, normal levels. Patient discharged to home in improved condition with alterations including d/c xanax, transition to ativan, encouraged Psychiatry evaluation given ongoing anxiety with prozac and wellbutrin regimen already in place, added advair and albuterol as well as prednisone taper with Pulmonary establishment encouragement and PCP follow-up. Prior to discharge oxygenation assessment was performed with patient 90% on room air without exertion but with exertional attempts, walking the halls patient did decrease to 87% on room air but improved with 2 L nasal cannula to 95% with exertion. Given this presentation oxygen supplementation set up for home prior to discharge. DAY OF DISCHARGE PROGRESS NOTE: Subjective: Patient without acute event overnight per self and nursing report. She notes improved to near baseline in regards to dyspnea, no marked coughing. Patient denies fever, chills, nausea, emesis, abdominal pain, chest pain. Patient agreeable to discharge to home. Patient will be discharged with follow-up with primary care physician within 3-5 days in addition to referral to Pulmonary. Oxygenation performed and being set-up for home O2. Objective: Physical Examination: General: awake, alert, oriented x 3 and cooperative, seated upright in bed in no apparent distress. Skin: normal color, turgor, no icterus, cyanosis. HEENT: AT/NC, EOMI, PERRLA, improved MMM. Lungs: Improved BS, still diminished, > bases, no wheezing. Heart: Regular rate and rhythm; no gallop, rub audible. Abdomen: soft, obese, NTTP, ND, normal BS. Extremities: no cyanosis, clubbing, or edema. Neurological: patient awake, alert, oriented x 3; cognitive function intact; pupils equally reactive to light and accomodation; cranial nerves II-XII grossly normal, moving all 4 extremities, no focal deficits, strength improved, moderately globally decreased. Psychiatric: affect appears normal, no acute evidence of depressive or anxiety feelings. Assessment and Plan: Please see hospital summary above. Discharge Activity: - - Avoid aggressive activity until re-evaluation per Primary care physician. May resume sexual activity in: 10-14 days Weight Bearing Status: Weight bearing as tolerated Call your doctor if you observe: Fever of 101 or Higher, Inability to urinate, Inability to have a bowel movement, Shortness of breath, Dizziness, Fainting spells, Chest pain, Uncontrolled pain Home Medications: Medications to take at Discharge Fluoxetine [Prozac] 80 mg PO DAILY 12/10/14 buPROPion tablets [Wellbutrin tablets] 100 mg PO BID 12/10/14 Amitriptyline HCl [Elavil] 200 mg PO QHS 06/08/17 Omeprazole [Prilosec] 20 mg PO DAILY 06/08/17 Amlodipine Besylate [Norvasc] 5 mg PO DAILY 10/25/17 Losartan Potassium [Cozaar] 100 mg PO DAILY 10/25/17 Meclizine HCl [Antivert] 12.5 mg PO TID PRN PRN 10/25/17 Hydrochlorothiazide [Hctz] 25 mg PO DAILY 10/27/17 Ibuprofen [Motrin] 800 mg PO Q6H PRN 12/19/17 Letrozole [Femara] 2.5 mg PO DAILY 01/05/18 Acetaminophen/Codeine #3 [Tylenol #3 Tablet] 1 tablet PO Q6H PRN PRN 02/18/18 Albuterol IH (ProAir) [Proair Hfa] 1 - 2 puff INHALATION Q4H PRN PRN #1 inhaler 02/24/18 Fluticasone/Salmeterol [Advair 250-50 Diskus] 1 ea IH BID #1 blst.w.dev 02/24/18 Guaifenesin [Mucinex] 1,200 mg PO BID #20 tbmp.12hr 02/24/18 Lorazepam [Ativan] 0.5 mg PO BID PRN 5 Days #10 tab 02/24/18 Mineral Oil/Petrolatum Cr [Aquaphor] 1 applic TOPICAL PRN PRN #1 bottle 02/24/18 Prednisone 10 mg PO UD #30 tab 02/24/18 Following Prescrptions Were Given to Patient: Albuterol IH (ProAir) [Proair Hfa] 1 - 2 puff INHALATION Q4H PRN PRN #1 inhaler PRN Reason: dyspnea, wheezing Mineral Oil/Petrolatum Cr [Aquaphor] 1 applic TOPICAL PRN PRN #1 bottle PRN Reason: RADIATION AREAS Prednisone 10 mg PO UD #30 tab Fluticasone/Salmeterol [Advair 250-50 Diskus] 1 ea IH BID #1 blst.w.dev Guaifenesin [Mucinex] 1,200 mg PO BID #20 tbmp.12hr Lorazepam [Ativan] 0.5 mg PO BID PRN 5 Days #10 tab PRN Reason: Anxiety Primary Care Physician: Joan Leigh MD [Primary Care Provider] - Please follow up with your Primary Care Physician in: Follow-up within 3-5 days. Please Follow Up With: Felipe Cason, DO When: Please follow-up to establish, may see INVESTIGATOR NARCOTICS, 1-2 weeks. Patient Instructions: What is COPD?, Chronic Lung Disease: Preventing Lung Infections, What Is Emphysema?, Resources for Chronic Lung Disease, Caring for Your Inhaler, Using an Inhaler with a Spacer, Using an Inhaler Without a Spacer, Discharge Instructions: Using a Metered-Dose Inhaler, COPD: Using Inhalers, Traveling with Oxygen, Using Oxygen Safely, Using Oxygen at Home, Chronic Lung Disease: If Oxygen Is Prescribed, Discharge Instructions: Using Oxygen at Home, Discharge Instructions: Traveling with Oxygen Disposition: Home Minutes spent on discharge:: 35 Patient Condition:: Fair Medical Necessity - Tobacco Use Smoking Status: Former smoker Tobacco Use: Non-smoker Meaningful Use Info Meaningful Use Diagnoses (Choose all that apply): None applicable Code Visit Inpatient E&M: 61565 Disch Hosp
--- NOTE | 2018-02-24 09:14 | DS.PCM_ITS ---
Discharge Date and Diagnosis - Problem List Patient Problems: Active and Suspected Problems Shortness of breath (Acute) Nonproductive cough (Acute) Date of Admission: 02/22/18 Date of Discharge: 02/24/18 - Primary Discharge Diagnosis Active and Suspected Problems (1) Acute on chronic COPD exacerbation w/ Hypoxia (Required oxygen supplementation upon discharge) (2) Breast CA, Unclear Type, Recent 12/2017 Dx Breast CA s/p BL Mastectomy currently undergoing radiation and chemotherapy (3) Hypertension (4) Anxiety and Depression (5) Obesity (6) GERD - Secondary Discharge Diagnosis (1) Chronic COPD exacerbation, not on medical therapy (2) Breast CA, Unclear Type, Recent 12/2017 Dx Breast CA s/p BL Mastectomy currently undergoing radiation and chemotherapy (3) Hypertension (4) Anxiety and Depression (5) Obesity (6) GERD Hospital Course and Treatment Operations: None Procedures: EKG Summary of Care Provided: The patient is a 57 y/o F w/ PMHx: Anxiety and Depression, HTN, Chronic COPD not on regimen, Obesity, Former Tobacco use, Recent 12/2017 Dx Breast CA s/p BL Mastectomy currently undergoing radiation and chemotherapy who presents to the [facility] ED on 02/22/18 with ongoing progressively worsening shortness of breath, mildly productive cough with no fevers or chills ?48 hours. CXR w/ chronic changes, CBC upon admit with WBC 8.8 without marked shift. Admitted to AL, maintained on oxygen with wean as tolerated to room air, continued ATC duonebs, PRN albuterol, IV methylprednisolone with prednisone transition 02/24/18 AM, HOB , IS parameters, deferred abx given unremarkable CBC and afebrile, respiratory viral panel unremarkable. Aquaphor used on radiation pinzon and given ongoing chemotherapy patient maintained on precautions and mag/phos obtained, normal levels. Patient discharged to home in improved condition with alterations including d/c xanax, transition to ativan, encouraged Psychiatry evaluation given ongoing anxiety with prozac and wellbutrin regimen already in place, added advair and albuterol as well as prednisone taper with Pulmonary establishment encouragement and PCP follow-up. Prior to discharge oxygenation assessment was performed with patient 90% on room air without exertion but with exertional attempts, walking the halls patient did decrease to 87% on room air but improved with 2 L nasal cannula to 95% with exertion. Given this presentation oxygen supplementation set up for home prior to discharge. DAY OF DISCHARGE PROGRESS NOTE: Subjective: Patient without acute event overnight per self and nursing report. She notes improved to near baseline in regards to dyspnea, no marked coughing. Patient denies fever, chills, nausea, emesis, abdominal pain, chest pain. Patient agreeable to discharge to home. Patient will be discharged with follow- up with primary care physician within 3-5 days in addition to referral to Pulmonary. Oxygenation performed and being set-up for home O2. Objective: Physical Examination: General: awake, alert, oriented x 3 and cooperative, seated upright in bed in no apparent distress. Skin: normal color, turgor, no icterus, cyanosis. HEENT: AT/NC, EOMI, PERRLA, improved MMM. Lungs: Improved BS, still diminished, > bases, no wheezing. Heart: Regular rate and rhythm; no gallop, rub audible. Abdomen: soft, obese, NTTP, ND, normal BS. Extremities: no cyanosis, clubbing, or edema. Neurological: patient awake, alert, oriented x 3; cognitive function intact; pupils equally reactive to light and accomodation; cranial nerves II-XII grossly normal, moving all 4 extremities, no focal deficits, strength improved, moderately globally decreased. Psychiatric: affect appears normal, no acute evidence of depressive or anxiety feelings. Assessment and Plan: Please see hospital summary above. Discharge Activity: - - Avoid aggressive activity until re-evaluation per Primary care physician. May resume sexual activity in: 10-14 days Weight Bearing Status: Weight bearing as tolerated Call your doctor if you observe: Fever of 101 or Higher, Inability to urinate, Inability to have a bowel movement, Shortness of breath, Dizziness, Fainting spells, Chest pain, Uncontrolled pain Home Medications: Medications to take at Discharge Fluoxetine [Prozac] 80 mg PO DAILY 12/10/14 buPROPion tablets [Wellbutrin tablets] 100 mg PO BID 12/10/14 Amitriptyline HCl [Elavil] 200 mg PO QHS 06/08/17 Omeprazole [Prilosec] 20 mg PO DAILY 06/08/17 Amlodipine Besylate [Norvasc] 5 mg PO DAILY 10/25/17 Losartan Potassium [Cozaar] 100 mg PO DAILY 10/25/17 Meclizine HCl [Antivert] 12.5 mg PO TID PRN PRN 10/25/17 Hydrochlorothiazide [Hctz] 25 mg PO DAILY 10/27/17 Ibuprofen [Motrin] 800 mg PO Q6H PRN 12/19/17 Letrozole [Femara] 2.5 mg PO DAILY 01/05/18 Acetaminophen/Codeine #3 [Tylenol #3 Tablet] 1 tablet PO Q6H PRN PRN 02/18/18 Albuterol IH (ProAir) [Proair Hfa] 1 - 2 puff INHALATION Q4H PRN PRN #1 inhaler 02/24/18 Fluticasone/Salmeterol [Advair 250-50 Diskus] 1 ea IH BID #1 blst.w.dev Guaifenesin [Mucinex] 1,200 mg PO BID #20 tbmp.12hr 02/24/18 Lorazepam [Ativan] 0.5 mg PO BID PRN 5 Days #10 tab 02/24/18 Mineral Oil/Petrolatum Cr [Aquaphor] 1 applic TOPICAL PRN PRN #1 bottle Prednisone 10 mg PO UD #30 tab 02/24/18 Following Prescrptions Were Given to Patient: Albuterol IH (ProAir) [Proair Hfa] 1 - 2 puff INHALATION Q4H PRN PRN #1 inhaler PRN Reason: dyspnea, wheezing Mineral Oil/Petrolatum Cr [Aquaphor] 1 applic TOPICAL PRN PRN #1 bottle PRN Reason: RADIATION AREAS Prednisone 10 mg PO UD #30 tab Fluticasone/Salmeterol [Advair 250-50 Diskus] 1 ea IH BID #1 blst.w.dev Guaifenesin [Mucinex] 1,200 mg PO BID #20 tbmp.12hr Lorazepam [Ativan] 0.5 mg PO BID PRN 5 Days #10 tab PRN Reason: Anxiety Primary Care Physician: Joan Leigh MD [Primary Care Provider] - Please follow up with your Primary Care Physician in: Follow-up within 3-5 days. Please Follow Up With: Felipe Cason, DO When: Please follow-up to establish, may see SIGNAL TESTER, 1-2 weeks. Patient Instructions: What is COPD?, Chronic Lung Disease: Preventing Lung Infections, What Is Emphysema?, Resources for Chronic Lung Disease, Caring for Your Inhaler, Using an Inhaler with a Spacer, Using an Inhaler Without a Spacer , Discharge Instructions: Using a Metered-Dose Inhaler, COPD: Using Inhalers, Traveling with Oxygen, Using Oxygen Safely, Using Oxygen at Home, Chronic Lung Disease: If Oxygen Is Prescribed, Discharge Instructions: Using Oxygen at Home, Discharge Instructions: Traveling with Oxygen Disposition: Home Minutes spent on discharge:: 35 Patient Condition:: Fair Medical Necessity - Tobacco Use Smoking Status: Former smoker Tobacco Use: Non-smoker Meaningful Use Info Meaningful Use Diagnoses (Choose all that apply): None applicable Code Visit Inpatient E&M: 81542 Disch Hosp
[2018-02-24] MEDS: FLUoxetine 20 MG Capsule 80 MG PO (10:21)
[2018-02-24] MEDS: amLODIPine 5 MG Tablet PO (10:21)
[2018-02-24] MEDS: Losartan Potassium 100 MG Tablet PO (10:22)
[2018-02-24] MEDS: hydroCHLOROthiazide 25 MG Tablet PO (10:22)
[2018-02-24] MEDS: buPROPion 100 MG Tablet PO (10:22)
[2018-02-24] MEDS: Pantoprazole Sodium 20 MG Tablet PO (10:22)
[2018-02-24] MEDS: Enoxaparin 40 MG/0.4 ML Syringe SC (10:22)
--- NOTE | 2018-02-24 11:19 | CASEMGMT ---
Home oxygen testing completed. Pt will need Home Oxygen. ARIE and Jas are [employer] for [facility]. Pt would like [employer] as she has used them in past for equipment. Referral faxed. [facility] and [facility], portable tank will be brought over. John DESOUZAN RN ACM
== END 2018-02-24 14:30 | disposition home or self-care (01) | DRG 88 ==
LOC: ED 16:01 → MS2 20:22
PROVIDERS: Admitting Provider Internal Medicine; Emergency Provider Emergency Medicine; Family Provider Internal Medicine; PCP Internal Medicine; Visit Provider Family Medicine
DX: J44.1 Chronic obstructive pulmonary disease with (acute) exacerbation (principal); R09.02 Hypoxemia; C50.919 Malignant neoplasm of unspecified site of unspecified female breast; Z90.13 Acquired absence of bilateral breasts and nipples; K21.9 Gastro-esophageal reflux disease without esophagitis; I10 Essential (primary) hypertension; Z87.891 Personal history of nicotine dependence; Z79.899 Other long term (current) drug therapy; F41.9 Anxiety disorder, unspecified; F32.9 Major depressive disorder, single episode, unspecified; E66.9 Obesity, unspecified; Z68.37 Body mass index [BMI] 37.0-37.9, adult
CPT/HCPCS: 36591; 36600; 71045; 71275; 80048; 80053; 82803; 83036; 83735; 83880; 84100; 84484; 85025; 87633; 93005; 94640; 97162; 97166; 99218; 99251; 99285; Q9967; A4216; G0378; G0463

== ENCOUNTER 2018-03-14 21:43 | Emergency (ER) | payer MEDICAID, SELFPAY ==
[2018-03-14 21:45] VITALS: BP 147/78; PULSE 99; RESP 20; TEMP 36.5; O2SAT 98; BMI 38.5
--- NOTE | 2018-03-14 22:10 | RAD_ITS ---
STUDY: X-RAY CHEST REASON FOR EXAM: Female, 57 years old. Swollen ankles TECHNIQUE: Single AP portable view of the chest. COMPARISON: 02/22/2018. FINDINGS: Right Port-A-Cath in place with the tip in the lower SVC. The lungs are clear and expanded. Stable right lower lung granuloma. There is no demonstrated pleural abnormality. Normal size heart. Normal mediastinum and hailey. Normal visualized pulmonary arteries. Normal visualized aortic arch and descending thoracic aorta. Normal visualized thoracic spine. Normal visualized ribs, clavicles, and shoulders. There is no demonstrated abnormality of the visualized soft tissue structures of the upper abdomen. RAD/Chest 1 View (Portable) IMPRESSION: No infiltrates. Right lower lung granuloma. Electronically Signed: Joe Camilo DO at 22:40 EDT , Service support ,
--- NOTE | 2018-03-14 22:11 | EKG12_ITS ---
Test Reason : EDEMA Blood Pressure : / mmHG Vent. Rate : 094 BPM Atrial Rate : 094 BPM P-R Int : 170 ms QRS Dur : 070 ms QT Int : 366 ms P-R-T Axes : 055 036 057 degrees QTc Int : 457 ms Normal sinus rhythm Low voltage QRS Borderline ECG Confirmed by CONRAD JOSE, VALENTINO ([id number]), multimedia editor GARCIA GUERIN ([id number]) on 03/17/2018 2:04:46 PM Referred By: ROBERT Confirmed By:VALENTINO MARTINES MD
--- NOTE | 2018-03-14 22:14 | US_ITS ---
STUDY: VENOUS DOPPLER ULTRASOUND - BILATERAL LOWER EXTREMITIES REASON FOR EXAM: Female, 57 years old. Swelling TECHNIQUE: Ultrasound evaluation of the deep vein system to include mcginnis-scale imaging and compression was performed. Mcginnis-scale imaging and Doppler sonographic evaluation, including duplex spectral analysis and qualitative color flow sonography, was performed. COMPARISON: None. FINDINGS: RIGHT LEG Common Femoral Vein: Normal compression, spontaneity and augmentation. Normal color Doppler. Common Femoral Vein/Greater Saphenous Junction: Normal compression, spontaneity and augmentation. Normal color Doppler. Deep Femoral Vein: Normal compression, spontaneity and augmentation. Normal color Doppler. Femoral Proximal: Normal compression, spontaneity and augmentation. Normal color Doppler. Femoral Middle: Normal compression, spontaneity and augmentation. Normal color Doppler. Femoral Distal: Normal compression, spontaneity and augmentation. Normal color Doppler. Popliteal Vein: Normal compression, spontaneity and augmentation. Normal color Doppler. Posterior Tibial Vein: Normal compression, spontaneity and augmentation. Normal color Doppler. Peroneal Vein: Normal compression, spontaneity and augmentation. Normal color Doppler. LEFT LEG Common Femoral Vein: Normal compression, spontaneity and augmentation. Normal color Doppler. Common Femoral Vein/Greater Saphenous Junction: Normal compression, spontaneity and augmentation. Normal color Doppler. Deep Femoral Vein: Normal compression, spontaneity and augmentation. Normal color Doppler. Femoral Proximal: Normal compression, spontaneity and augmentation. Normal color Doppler. Femoral Middle: Normal compression, spontaneity and augmentation. Normal color Doppler. Femoral Distal: Normal compression, spontaneity and augmentation. Normal color Doppler. Popliteal Vein: Normal compression, spontaneity and augmentation. Normal color Doppler. Posterior Tibial Vein: Normal compression, spontaneity and augmentation. Normal color Doppler. Peroneal Vein: Normal compression, spontaneity and augmentation. Normal color Doppler. US/Venous Duplex Imag/Samuel Extrem IMPRESSION: Normal venous Doppler ultrasound of the bilateral lower extremities. Electronically Signed: Eagle Henao MD at 23:42 EDT , Service support ,
--- NOTE | 2018-03-14 22:20 | ED.DCSUM_ITS ---
- ER Visit Summary Date of Service: 03/14/18 Chief Complaint: Lower extremity swelling History of Present Illness: The patient is a 57 F currently being treated for breast cancer, with recent admission for COPD and now on home oxygen, who presents with lower extremity swelling. Patient noted swelling in her lower legs, left greater than right that started 3 days ago. Her legs are also tender and ache. She has bruising noted to the left lateral ankle, but no history of injury. She denies any paresthesias, weakness or loss of function. She is completed her radiation therapy but takes a daily chemotherapy pill. She denies any other recent medication changes. She is not on blood thinners. No prior history of PE or DVT. She has chronic shortness of breath due to her COPD but no acute worsening. No fever, chest pain, abdominal pain, nausea or vomiting, lightheadedness or dizziness, or other complaints. Physical Examination: Vital signs: afebrile, hemodynamically stable, no hypoxia on room air General: well nourished, well developed, in no distress Skin: warm, dry, no rash, conjunctival pallor HEENT: normocephalic and atraumatic; PERRL, EOMI, moist mucous membranes Cardiovascular: regular rate and rhythm without murmurs, 1+ pitting peripheral edema, L>R, 2+ pulses all distal extremities Respiratory: No increased work of breathing, lungs are globally diminished, no rales, rhonchi or wheezing Abdominal: Abdomen is soft, distended, nontender with normoactive bowel sounds, no guarding or rebound, no masses MSK: Moves all extremities, no deformities, normal strength, tenderness to palpation of calves, no palpable cords, negative Jerri's sign Neuro: Awake and alert, oriented ?4. No facial droop, sensation and motor function intact and symmetric Test Results: Abnormal Lab Results 03/14/18 03/14/18 03/14/18 22:30 22:30 22:30 WBC 8.4 RBC 3.78 L Hgb 10.7 L Hct 33.0 L MCV 87.3 MCH 28.3 MCHC 32.4 RDW 14.6 RDW Differential 45.6 H Plt Count 253 MPV 9.4 Immature Gran % (Auto) 0.200 Neut % (Auto) 73.5 H Lymph % (Auto) 18.1 L [place] % (Auto) 5.9 Eos % (Auto) 2.2 Baso % (Auto) 0.1 Absolute Neuts (auto) 6.1 Absolute Lymphs (auto) 1.51 Total Counted Not Reportable PT 13.0 INR 1.0 APTT 31.4 Sodium 138 Potassium 3.7 Chloride 100 Carbon Dioxide 28.0 Anion Gap 10 BUN 19 H Creatinine 0.94 Estim Creat Clear Calc 52.22 Est GFR (MDRD) Af Amer 79 Est GFR (MDRD) Non-Af 65 BUN/Creatinine Ratio 20.1 H Glucose 96 Calcium 8.8 Total Bilirubin 0.30 AST 21 ALT 32 Alkaline Phosphatase 99 Troponin I < 0.015 B-Natriuretic Peptide Total Protein 6.6 Albumin 3.0 L Globulin 3.6 Albumin/Globulin Ratio 0.8 L 03/14/18 22:30 WBC RBC Hgb Hct MCV MCH MCHC RDW RDW Differential Plt Count MPV Immature Gran % (Auto) Neut % (Auto) Lymph % (Auto) [place] % (Auto) Eos % (Auto) Baso % (Auto) Absolute Neuts (auto) Absolute Lymphs (auto) Total Counted PT INR APTT Sodium Potassium Chloride Carbon Dioxide Anion Gap BUN Creatinine Estim Creat Clear Calc Est GFR (MDRD) Af Amer Est GFR (MDRD) Non-Af BUN/Creatinine Ratio Glucose Calcium Total Bilirubin AST ALT Alkaline Phosphatase Troponin I B-Natriuretic Peptide 34.6 Total Protein Albumin Globulin Albumin/Globulin Ratio Emergency Department Course and Treatment: Differential includes DVTs, right sided heart failure, anemia, protein deficiency, medication side effect, heat edema. Ultrasounds of the lower extremity showed no blood clots. Troponin negative. Chest x-ray showed no infiltrates or signs of CHF. BNP was within normal limits. Patient had no significant anemia, leukocytosis, electrolyte derangements, or protein/albumin deficiency on her lab work. No emergent finding for the cause of patient's lower extremity edema was found. We discussed not treating her with any diuretics at this time, as the source of the edema is unclear and adding a diuretic may do more harm than good at this point. Patient is to follow-up with her doctors to discuss the edema and any further workup or treatment, and in the meantime she will use elevation, rest and compression stockings to help with symptomatic control. She agreed with this plan was discharged home. Treatment Plan: [] Disposition: [] Impression: Bilateral lower extremity edema, history of breast cancer This note was generated with [employer] dictation software. It may contain incorrect words, spelling, and punctuation that were not noted in review of the chart prior to signing ED Disposition - Plan for ED Patient: Disposition: Home or Assisted Living Chief Complaint: Edema Instructions: ED Leg Swelling Bilateral Referrals: Joan Leigh MD [Primary Care Provider] - As soon as possible Additional Instructions: Please follow-up with your doctors as soon as possible to discuss the swelling in your lower legs and any possible necessary treatment. You had no blood clots on ultrasound of the legs. Your lab work showed no signs of heart failure , electrolyte derangements, renal dysfunction, anemia, or significant protein deficiency as the source of the swelling. Keep your legs elevated when you are sitting. You can try compression stockings to help with the swelling as well. If you have any worsening of your condition or any new concerning symptoms, please return immediately to the emergency department for another evaluation.
[2018-03-14 22:51] LABS: Absolute Lymphocyte Count 1.51 X10^3/ul (0.83-4.51); Absolute Neutrophil Count 6.1 X10^3/uL (2.0-7.7); Basophil# 0.01 X10^3/uL; Basophil% 0.1 % (0-1); Eosinophil# 0.18 X10^3/uL; Eosinophils% 2.2 % (0-5); Hemoglobin 10.7 g/dl (12.0-15.0); Lymphocyte # 1.51 X10^3/ul (4.0); Lymphocyte % 18.1 % (19-41); Mean Corp Hgb Conc 32.4 g/gl (32-36); Mean Corpuscular Hgb 28.3 pg (27.0-32.0); Mean Corpuscular Volume 87.3 fL (81-99); Mean Platelet Vol. 9.4 fl (6.2-12.0); Monocyte# 0.49 X10^3/uL; Monocyte% 5.9 % (0-10); Neutrophil # 6.14 X10^3/uL (2.7-7.7); Neutrophil % 73.5 % (47-70); Platelet Count 253 K/mm3 (150-450); RBC Distribution Width CV 14.6 % (11.6-14.6); RBC Distribution Width SD 45.6 fl (35.1-43.9); Red Blood Count 3.78 M/mm3 (4.2-5.4); White Blood Count 8.4 K/mm3 (4.4-11.0)
[2018-03-14 22:52] LABS: POSITIVE COUNT NO; POSITIVE DIFFERENTIAL NO; POSITIVE MORPHOLOGY NO
[2018-03-14 22:59] LABS: Partial Thromboplast Time 31.4 Seconds (24.1-36.2)
[2018-03-14 23:09] LABS: ALB/GLOB Ratio 0.8 RATIO (0.9-2.4); AST(SGOT) 21 U/L (15-37); Alanine Aminotransfer ALT/SGPT 32 U/L (13-56); Alkaline Phosphatase 99 U/L (45-117); Anion Gap 10 (5-15); BUN 19 mg/dL (7-18); BUN/Creat Ratio 20.1 RATIO (10-20); Calcium,Total 8.8 mg/dL (8.5-10.1); Chloride 100 mmol/L (98-107); Creatinine, Serum 0.94 mg/dL (0.55-1.02); EST Glomerular Filtration Rate 65 mL/min (>60); Est Glom Filt Rate - Afr Amer 79 mL/min (>60); Estimated Creatinine Clearance 52.22 ml/min; Globulin 3.6 g/dL (2.2-4.2); Glucose 96 mg/dL (74-106); Potassium 3.7 mmol/L (3.5-5.1); Protein, Total 6.6 g/dL (6.4-8.2); Sodium Level 138 mmol/L (136-145)
[2018-03-14 23:19] LABS: BNP,B-Type NATRIURETIC PEPTIDE 34.6 pg/mL (0-100)
--- NOTE | 2018-03-15 00:20 | ED.DEP ---
ED Disposition - Plan for ED Patient: Disposition: Home or Assisted Living Chief Complaint: Edema Instructions: ED Leg Swelling Bilateral Referrals: Joan Leigh MD [Primary Care Provider] - As soon as possible Additional Instructions: Please follow-up with your doctors as soon as possible to discuss the swelling in your lower legs and any possible necessary treatment. You had no blood clots on ultrasound of the legs. Your lab work showed no signs of heart failure, electrolyte derangements, renal dysfunction, anemia, or significant protein deficiency as the source of the swelling. Keep your legs elevated when you are sitting. You can try compression stockings to help with the swelling as well. If you have any worsening of your condition or any new concerning symptoms, please return immediately to the emergency department for another evaluation.
--- NOTE | 2018-03-15 00:23 | DCINST.ED_ITS ---
ED Disposition - Plan for ED Patient: Disposition: Home or Assisted Living Chief Complaint: Edema Instructions: ED Leg Swelling Bilateral Referrals: Joan Leigh MD [Primary Care Provider] - As soon as possible Additional Instructions: Please follow-up with your doctors as soon as possible to discuss the swelling in your lower legs and any possible necessary treatment. You had no blood clots on ultrasound of the legs. Your lab work showed no signs of heart failure , electrolyte derangements, renal dysfunction, anemia, or significant protein deficiency as the source of the swelling. Keep your legs elevated when you are sitting. You can try compression stockings to help with the swelling as well. If you have any worsening of your condition or any new concerning symptoms, please return immediately to the emergency department for another evaluation.
[2018-03-15 00:34] VITALS: BP 134/98; PULSE 96; RESP 16; O2SAT 98
== END 2018-03-15 00:35 | disposition home or self-care (01) ==
PROVIDERS: Emergency Provider Emergency Medicine; Family Provider Internal Medicine; PCP Internal Medicine
DX: R60.0 Localized edema (principal); C50.919 Malignant neoplasm of unspecified site of unspecified female breast; J44.9 Chronic obstructive pulmonary disease, unspecified; Z99.81 Dependence on supplemental oxygen; Z87.891 Personal history of nicotine dependence; Z79.51 Long term (current) use of inhaled steroids; Z79.899 Other long term (current) drug therapy
CPT/HCPCS: 71045; 80053; 83880; 84484; 85025; 85610; 85730; 93005; 93970; 99284; A4216

== ENCOUNTER → 2018-04-07 12:27 | Outpatient (CLI) | payer MEDICAID, SELFPAY ==
[2018-04-07 11:19] VITALS: PULSE 100; PULSE 104; PULSE 106; PULSE 109; PULSE 81; PULSE 89; PULSE 98; O2SAT 87; O2SAT 88; O2SAT 90; O2SAT 92; O2SAT 93
--- NOTE | 2018-04-07 12:27 | DT_ITS ---
This patient was seen during an EMR downtime April 03, 2018 - April 10, 2018. This patient may have a combination of paper and electronic documentation or all paper documentation. All documentation is viewable within the e-chart portion of [employer] for each patient visit.
--- NOTE | 2018-04-10 11:22 | CPS ---
Testing done by Julia Dominguez RRT. Patient has 2 lpm at home, [facility].
--- NOTE | 2018-04-10 12:22 | WT_ITS ---
PSN 6 Minute Walk Test - 6 Minute Walk Test 6 Minute Walk Test: 6 Minute Walk Test PSN:6-Minute Walk Test Start: 04/10/18 11: 19 Freq: Status: Active Protocol: RESP.6MINW Document 04/07/18 11:19 EMANUEL (Rec: 04/10/18 11:23 EMANUEL [id number]) 6 Minute Walk Test Date Performed 04/07/18 Time Performed 12:30 Height 5 ft 2 in Weight: 200 lb Weight in Pounds 200.[address]: Felipe Cason Assistive device used: None Pre-test Oxygen Delivery Method Room Air Pulse Ox (%) 92 Pulse Rate (60-100 beats/min) 109 H Dyspnea Oscar Scale (0-10) 2 Exertion Oscar Scale (6-20) 8 1st minute Oxygen Delivery Method Room Air Pulse Ox (%) 87 Pulse Rate (60-100 beats/min) 81 2nd minute Oxygen Flow Rate (L/min) (L/min) 2 Oxygen Delivery Method Nasal Cannula Pulse Ox (%) 88 Pulse Rate (60-100 beats/min) 104 H 3rd minute Oxygen Flow Rate (L/min) (L/min) 3 Oxygen Delivery Method Nasal Cannula Pulse Ox (%) 90 Pulse Rate (60-100 beats/min) 89 4th minute Oxygen Flow Rate (L/min) (L/min) 3 Oxygen Delivery Method Nasal Cannula Pulse Ox (%) 92 Pulse Rate (60-100 beats/min) 106 H 5th minute Oxygen Flow Rate (L/min) (L/min) 3 Oxygen Delivery Method Nasal Cannula Pulse Ox (%) 93 Pulse Rate (60-100 beats/min) 104 H 6th minute Oxygen Flow Rate (L/min) (L/min) 3 Oxygen Delivery Method Nasal Cannula Pulse Ox (%) 92 Pulse Rate (60-100 beats/min) 100 Post-test Oxygen Flow Rate (L/min) (L/min) 3 Oxygen Delivery Method Nasal Cannula Pulse Ox (%) 93 Pulse Rate (60-100 beats/min) 98 Dyspnea Oscar Scale (0-10) 3 Exertion Oscar Scale (6-20) 13 Full Laps Walked 15 Partial Lap, Number of Tiles Walked 0 Total Distance Walked (ft) 885 04/10/18 11:22 Cardiopulmonary Services by Heidi Diaz Testing done by Julia Dominguez RRT. [facility] Initialized on 04/10/18 11:22 - END OF NOTE - Interpretation Interpretation: The patient ambulated 889 feet over the course of 6 minutes beginning on room air without assistive devices or breaks. Pretesting oxygen saturation was noted to be 92% on room air. With ambulation, the patient desaturated to 87% at minute 1 of testing. 2 L/min of oxygen was applied. However, the patient again desaturated to 88%, requiring an escalation in her flow rate to 3 L/min. Following this, the patient was able to complete the remainder of the test while maintaining oxygen saturations at or above 88%. This testing indicates the presence of significant exertional oxygen desaturation and impaired walk distance. - Recommendations Recommendations: 3 L/min of supplemental oxygen should be utilized with exertion.
== END ==
PROVIDERS: Family Provider Internal Medicine; PCP Internal Medicine; Visit Provider Internal Medicine Critical Care Medicine
DX: J44.9 Chronic obstructive pulmonary disease, unspecified (principal)
CPT/HCPCS: 94618

== ENCOUNTER → 2018-04-11 13:28 | Outpatient (CLI) | payer MEDICAID, SELFPAY ==
--- NOTE | 2018-04-11 15:56 | PFTCOMP ---
COMPLETE PULMONARY FUNCTION TEST INTERPRETATION Brief HPI: Patient is a 57 year old female, currently under the care of Dr. Cason, who presents to [facility] for complete pulmonary function tests secondary to diagnosis of COPD. Respiratory therapist reports good effort and reproducible results. Patient was unable to complete lung volumes. Interpretation: Forced expiration spirometry shows a moderately-severe large airways obstructive ventilatory defect with an FEV1 of 57% predicted. There is a significant bronchodilator response in FVC by ATS criteria. Spirograms are of good quality and plateau slowly, indicating slowly emptying areas of the lungs. The respiratory flow volume loop shows decreased expiratory flow rates at all lung volumes consistent with airway obstruction. Lung volumes by body plethysmography were not able to be performed. Diffusion capacity by carbon monoxide is decreased at 38% predicted. The airway resistance was not obtained. No previous pulmonary function tests were available for review. Impression: Partially reversible moderately severe obstructive ventilatory defect. Concomitant restriction cannot be excluded.
--- NOTE | 2018-04-11 16:00 | PFTCOMP_ITS ---
COMPLETE PULMONARY FUNCTION TEST INTERPRETATION Brief HPI: Patient is a 57 year old female, currently under the care of Dr. Cason , who presents to [facility] for complete pulmonary function tests secondary to diagnosis of COPD. Respiratory therapist reports good effort and reproducible results. Patient was unable to complete lung volumes. Interpretation: Forced expiration spirometry shows a moderately-severe large airways obstructive ventilatory defect with an FEV1 of 57% predicted. There is a significant bronchodilator response in FVC by ATS criteria. Spirograms are of good quality and plateau slowly, indicating slowly emptying areas of the lungs. The respiratory flow volume loop shows decreased expiratory flow rates at all lung volumes consistent with airway obstruction. Lung volumes by body plethysmography were not able to be performed. Diffusion capacity by carbon monoxide is decreased at 38% predicted. The airway resistance was not obtained. No previous pulmonary function tests were available for review. Impression: Partially reversible moderately severe obstructive ventilatory defect. Concomitant restriction cannot be excluded.
== END ==
PROVIDERS: Family Provider Internal Medicine; PCP Internal Medicine; Visit Provider Internal Medicine Critical Care Medicine
DX: J44.9 Chronic obstructive pulmonary disease, unspecified (principal)
CPT/HCPCS: 94060; 94729

== ENCOUNTER 2018-04-16 08:39 | Emergency (ER) | payer MEDICAID, SELFPAY ==
[2018-04-16 08:40] VITALS: BP 147/83; PULSE 102; RESP 22; TEMP 36.8; O2SAT 97; BMI 38.0
--- NOTE | 2018-04-16 08:51 | CT_ITS ---
STUDY: CTA CHEST REASON FOR EXAM: Female, 57 years old. Shortness of breath left chest swelling history of breast cancer bilateral mastectomy RADIATION DOSAGE (If Supplied By Facility): CTDIvol = ( 13.13 ) mGy, DLP = ( 700.93 ) mGycm TECHNIQUE: The examination was performed with the intravenous administration of 100 ml of Isovue 370 contrast material. Post-processing of the angiographic images was performed, with multiplanar reformation and 3D reconstruction. Individualized dose optimization techniques were used for this CT. COMPARISON: CT chest February 22, 2018 FINDINGS: Normal enhancement of the main pulmonary artery and right and left pulmonary arteries. Normal enhancement of the bilateral peripheral pulmonary arteries. There is no demonstrated pulmonary embolism. There is partial calcification of the aorta. 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 There is no demonstrated aortic dissection. There is mild cardiac enlargement. There is a small pericardial effusion. There is calcification in the mediastinum status post old granulomatous disease. There is a nonspecific 1 cm paratracheal lymph node measuring 8.1 mm. There is calcification in the right hilum compatible with old granulomatous disease. Normal visualized trachea and bronchi. There is a pattern of advanced emphysematous change throughout the lungs. There is pleural plaquing in the right lung periphery. There is a small focus of greater fibrosis in the left anterior chest wall. There is a small left effusion left lower lobe atelectasis. This is slightly greater than prior study. There is slightly greater left pleural fluid. Since prior study there is increased edema in the left side chest wall allowing for differences in technique. There is postoperative change in the left axilla. There is at least one lymph node remaining with well-circumscribed borders and a fatty center measuring 9 mm. There is a lymph node present measuring 5.4 mm with well-circumscribed borders and a fatty center. There is diastases of the chest wall and a bulge of intra-abdominal fat. There is degenerative change of the thoracic spine. There is moderate splenomegaly. The liver is mildly enlarged. There is fatty liver infiltration. There is a small hiatal hernia. CT/CTA Chest W/WO Contrast IMPRESSION: Advanced pulmonary emphysema, chronic obstructive pulmonary disease. No visualized pulmonary embolism. Small left effusion and atelectasis. Evidence of old granulomatous disease. Mild splenomegaly. Mild hepatomegaly. Relative to the prior study there is mild increase in the chest wall edema. Status post bilateral mastectomy and left axillary dissection. Electronically Signed: Dorothea Narvaez MD at 10:26 EDT Tel , Service support ,
--- NOTE | 2018-04-16 08:51 | EKG12_ITS ---
Test Reason : SOB Blood Pressure : / mmHG Vent. Rate : 097 BPM Atrial Rate : 097 BPM P-R Int : 188 ms QRS Dur : 076 ms QT Int : 372 ms P-R-T Axes : 079 066 071 degrees QTc Int : 472 ms Normal sinus rhythm Low voltage QRS Borderline ECG Confirmed by CONRAD JOSE, VALENTINO ([id number]), story editor GARCIA GUERIN ([id number]) on 04/19/2018 3:50:12 PM Referred By: ZHEN Confirmed By:VALENTINO MARTINES MD
--- NOTE | 2018-04-16 08:55 | ED.VISSUMM ---
- ER Visit Summary Date of Service: 04/16/18 Chief Complaint: Shortness of breath History of Present Illness: The patient is a 57 F presenting with shortness of breath and concern for left chest wall swelling. Patient has a history of breast cancer. She had a left mastectomy September 2017, right December 2017. She has a port in place. She is now on oral chemotherapy per Dr. Rachel. She wears 3 L home O2 chronically. She denies cough. She denies chest pain. She is not a smoker. She denies fever or other complaints. Physical Examination: Vitals are stable. Patient is afebrile. Alert no acute distress. HEENT exam is unremarkable. Neck is supple. Lungs are clear and equal bilaterally. Very minimal swelling left upper chest wall with no erythema or fluctuance. Incision well-healed, clean dry and intact Heart is regular rate and rhythm. Abdomen is soft nontender nondistended. Extremities are unremarkable. Skin is warm and dry. No focal neurologic deficit. Tearful and anxious Remainder of exam is unremarkable. Emergency Department Course and Treatment: Patient is given Ativan p.o. following Ativan patient is feeling much improved. EKG is sinus rate of 97 unchanged from previous. CBC shows a hemoglobin 11.1, chemistries unremarkable. Troponin is negative. CTA chest was obtained and shows advanced pulmonary emphysema, chronic obstructive pulmonary disease. No visualized pulmonary embolism. Small left effusion and atelectasis. Evidence of old granulomatous disease. Mild splenomegaly. Mild hepatomegaly. Relative to the prior study there is mild increase in the chest wall edema. Status post bilateral mastectomy and left axillary dissection. Patient is feeling much improved on reevaluation. She states she is under a lot of stress. She ran out of her Ativan. She is given a short course of Ativan. advised to follow-up with her primary care physician and her oncologist as scheduled. Advised return to ED if worsening complaints. Disposition: Discharge home Impression: Dyspnea, mild chest wall edema, anxiety This note was generated with [employer] dictation software. It may contain incorrect words, spelling, and punctuation that were not noted in review of the chart prior to signing ED Disposition - Plan for ED Patient: Chief Complaint: Shortness of Breath Instructions: ED Dyspnea Shortness of Breath Prescriptions: Lorazepam [Ativan] 0.5 mg PO BID PRN #6 tablet PRN Reason: Anxiety Referrals: Joan Leigh MD [Primary Care Provider] - Marissa Rachel MD [STAFF PHYSICIAN] -
[2018-04-16] MEDS: LORazepam 1 MG Tablet PO (08:58)
[2018-04-16 09:18] LABS: Absolute Lymphocyte Count 0.96 X10^3/ul (0.83-4.51); Basophil# 0.01 X10^3/uL; Basophil% 0.2 % (0-1); Eosinophil# 0.14 X10^3/uL; Eosinophils% 2.6 % (0-5); Hemoglobin 11.1 g/dl (12.0-15.0); Lymphocyte # 0.96 X10^3/ul (4.0); Lymphocyte % 17.8 % (19-41); Mean Corp Hgb Conc 31.7 g/gl (32-36); Mean Corpuscular Hgb 27.8 pg (27.0-32.0); Mean Corpuscular Volume 87.5 fL (81-99); Mean Platelet Vol. 8.9 fl (6.2-12.0); Monocyte# 0.24 X10^3/uL; Monocyte% 4.5 % (0-10); Neutrophil # 4.03 X10^3/uL (2.7-7.7); Neutrophil % 74.7 % (47-70); POSITIVE COUNT NO; POSITIVE DIFFERENTIAL NO; POSITIVE MORPHOLOGY NO; Platelet Count 212 K/mm3 (150-450); RBC Distribution Width CV 14.7 % (11.6-14.6); RBC Distribution Width SD 46.9 fl (35.1-43.9); White Blood Count 5.4 K/mm3 (4.4-11.0)
[2018-04-16 09:37] LABS: Anion Gap 4 (5-15); BUN 14 mg/dL (7-18); BUN/Creat Ratio 16.4 RATIO (10-20); Calcium,Total 8.5 mg/dL (8.5-10.1); Chloride 104 mmol/L (98-107); Creatinine, Serum 0.85 mg/dL (0.55-1.02); EST Glomerular Filtration Rate 73 mL/min (>60); Est Glom Filt Rate - Afr Amer 88 mL/min (>60); Estimated Creatinine Clearance 57.75 ml/min; Glucose 115 mg/dL (74-106); Potassium 3.7 mmol/L (3.5-5.1); Sodium Level 138 mmol/L (136-145)
[2018-04-16 10:34] VITALS: BP 111/68; PULSE 91; RESP 18; O2SAT 95
--- NOTE | 2018-04-16 10:43 | ED.DEP ---
ED Disposition - Plan for ED Patient: Chief Complaint: Shortness of Breath Instructions: ED Dyspnea Shortness of Breath Prescriptions: Lorazepam [Ativan] 0.5 mg PO BID PRN #6 tablet PRN Reason: Anxiety Referrals: Joan Leigh MD [Primary Care Provider] - Marissa Rachel MD [STAFF PHYSICIAN] -
[2018-04-16 11:38] VITALS: BP 127/79; PULSE 88; RESP 16; O2SAT 97
--- NOTE | 2018-04-17 12:19 | CM.ED ---
ED CALLBACK: Follow-up call placed to patient. No answer and no voicemail option.
== END 2018-04-16 11:38 | disposition home or self-care (01) ==
PROVIDERS: Emergency Provider Emergency Medicine; Family Provider Internal Medicine; PCP Internal Medicine
DX: R06.00 Dyspnea, unspecified (principal); R60.0 Localized edema; F41.9 Anxiety disorder, unspecified; C50.919 Malignant neoplasm of unspecified site of unspecified female breast; Z90.13 Acquired absence of bilateral breasts and nipples; J44.9 Chronic obstructive pulmonary disease, unspecified; K21.9 Gastro-esophageal reflux disease without esophagitis; I10 Essential (primary) hypertension; G47.30 Sleep apnea, unspecified; Z79.51 Long term (current) use of inhaled steroids; Z79.899 Other long term (current) drug therapy
CPT/HCPCS: 36591; 71275; 80048; 84484; 85025; 93005; 99285; Q9967; A4216